=== PATIENT | female | born 1975 | race Two or more races ===

== ENCOUNTER 2021-07-14 20:05 | Emergency (ER) | payer OTHER, SELFPAY ==
--- NOTE | ~2021-07-14 | XR_ITS ---
EXAMINATION: XR chest 2V DATE: 07/14/2021 23:14 INDICATION: Shortness of breath. TECHNIQUE: Frontal and lateral views of the chest were obtained. COMPARISON: Chest 2 views 09/30/2014 FINDINGS: The chest demonstrates clear lungs without pneumonia, pleural effusion, or pneumothorax. Th e heart size is normal. IMPRESSION: 1. No acute cardiopulmonary disease. Reviewed, dictated and finalized at location A.
[2021-07-14 20:39] VITALS: BP 189/94; PULSE 71; RESP 22; TEMP 37.1; O2SAT 100
--- NOTE | 2021-07-14 23:03 | ECG_ITS ---
Measurements Intervals [place] Rate: 56 P: 62 [place]: 131 QRS: 26 QRSD: 83 T: 29 QT: 418 QTc: 405 Interpretive Statements SINUS BRADYCARDIA LEFT ATRIAL ENLARGEMENT [-0.15mV P WAVE IN V1/V2] RSR' IN V1/V2 BORDERLINE ECG NO PREVIOUS ECG AVAILABLE FOR COMPARISON Electronically Signed On 07-15-2021 17:06:49 CDT by Calin Roberts M.D.
[2021-07-14 23:32] VITALS: PULSE 66; RESP 15; O2SAT 99
[2021-07-14 23:33] VITALS: BP 166/117; PULSE 57; RESP 13; O2SAT 100
[2021-07-14 23:46] VITALS: BP 172/105; PULSE 54; RESP 15; O2SAT 100
[2021-07-14 23:47] VITALS: PULSE 58; RESP 21; O2SAT 94
[2021-07-14 23:50] VITALS: BP 192/108; PULSE 64; RESP 15; O2SAT 100
[2021-07-15] VITALS (11 sets, daily range): BP systolic 162–184; BP diastolic 91–109; PULSE 55–77; RESP 14–24; O2SAT 97–100
--- NOTE | 2021-07-15 00:01 | ED.SOB ---
HPI - SOB/Dyspnea General Chief Complaint: Shortness of Breath/Dyspnea Stated Complaint: sob, covid + 07/12/2021 Time Seen by Provider: 07/14/21 23:38 Source: patient Mode of arrival: ambulatory Limitations: no limitations History of Present Illness HPI Narrative: This is a 46 year old female that presents to the ER for shortness of breath today. Reports she was diagnosed with COVID two days ago. Reports cough, congestion and sore throat. She is not vaccinated. Reports mild chest pain. Denies fever or lower extremity edema. Related Data Allergies Allergy/AdvReac Type Severity Reaction Status Date / Time No Known Allergies Allergy Verified 07/14/21 20:39 Review of Systems Review of Systems: CONSTITUTIONAL: Denies fever ENT: Reports congestion. Denies sore throat CARDIOVASCULAR: Reports chest pain RESPIRATORY: Reports cough and dyspnea. All systems reviewed & are unremarkable except as noted in HPI and below PMFSH Past Medical History Medical History (Updated 07/15/21 @ 02:06 by Myrna Mcghee PA-C) No active medical problems Social History Social History (Updated 07/15/21 @ 00:50 by Myrna Mcghee PA-C) Substance use: never Exam Narrative: GENERAL: Well-appearing, well-nourished, and in no acute distress. HEAD: Normocephalic, atraumatic. EYES: EOMI. ENT: Nares clear, no rhinorrhea or epistaxis. Mucous membranes moist. Oropharynx with mild redness, no tonsillar hypertrophy, exudate or other lesions. Bilateral TMs pearly najera non-bulging NECK: Supple. No adenopathy or masses. CHEST: Clear to auscultation. No respiratory distress. No wheezes rales or rhonchi HEART: Regular rate and rhythm. No murmur heard. Normal peripheral pulses. EXTREMITIES: Normal range of motion. No edema. SKIN: Warm, dry, no rash. NEURO: No focal deficits. Alert and oriented x3. PSYCH: Normal mood and affect Course Vital Signs Vital signs: Vital Signs Temperature 98.8 F 07/14/21 20:39 Pulse Rate 71 07/14/21 20:39 Respiratory Rate 22 H 07/14/21 20:39 Blood Pressure 189/94 H 07/14/21 20:39 Pulse Oximetry 100 07/14/21 20:39 Temperature 98.8 F 07/14/21 20:39 Pulse Rate 61 07/15/21 00:45 Respiratory Rate 20 07/15/21 00:45 Blood Pressure 169/91 H 07/15/21 00:31 Pulse Oximetry 100 07/15/21 00:45 MDM - SOB/Dyspnea MDM Narrative Medical decision making narrative: Patient presents to the emergency department for shortness of breath. Recently diagnosed with Covid. Oxygen saturation has remained normal on room air. Lungs are clear on exam. Blood pressure noted to be elevated on arrival. This did downtrend without intervention. Most recent blood pressures 160s/90s. Patient instructed to continue to monitor this at home and follow-up with primary for this. CBC is without leukocytosis. Does show normocytic anemia with hemoglobin of 11.7. Metabolic panel without concerning findings. EKG without acute ST changes. Baseline troponin is negative. D-dimer is not elevated. Chest x-ray without acute cardiopulmonary abnormality. Patient was updated on case findings. She is stable and felt appropriate for further outpatient evaluation. Instructed on continued care of viral infection. She is to follow-up with her primary care doctor. She was given warnings to return to the ER Lab Data Attestation: I reviewed the patient's lab results. Result diagrams: 07/15/21 00:02 07/15/21 00:02 Labs: Lab Results 07/15/21 07/15/21 07/15/21 Range/Units 00:02 00:02 00:02 WBC 6.1 (4.5-10.0) K/mm3 RBC 4.42 (4.2-5.4) M/mm3 Hgb 11.7 L (12.0-15.0) g/dL Hct 37.4 (37.0-47.0) % MCV 84.6 (80-100) fl MCH 26.5 (26-34) pg MCHC 31.3 L (32-36) g/dl RDW 12.3 (11.5-14.5) % Plt Count 366 (150-375) k/mm3 MPV 9.2 (7.4-10.4) fl Immature Gran % (Auto) 0.2 (0-0.5) % Neut % (Auto) 54.4 (45.5-73.1) % Lymph % (Auto) 34.8 (18.3-44.2) % [place] % (A
[2021-07-15 00:10] LABS: Basophils Percent Auto 0.3 % (0.2-1.2); Eosinophils Percent Auto 0.3 % (0-4.4); Hematocrit 37.4 % (37.0-47.0); Hemoglobin 11.7 g/dL (12.0-15.0); Immature Granulocyte Absolute 0.01 K/mm3 (0.00-0.031); Immature Granulocyte Percent A 0.2 % (0-0.5); Lymphocytes Absolute Auto 2.12 K/mm3 (0.9-3.2); Lymphocytes Percent Auto 34.8 % (18.3-44.2); Mean Corpuscular HGB Conc 31.3 g/dl (32-36); Mean Corpuscular Hemoglobin 26.5 pg (26-34); Mean Corpuscular Volume 84.6 fl (80-100); Mean Platelet Volume 9.2 fl (7.4-10.4); Monocytes Absolute Auto 0.6 K/mm3 (0.1-0.6); Neutrophils Absolute Auto 3.3 K/mm3 (1.3-6.7); Neutrophils Percent Auto 54.4 % (45.5-73.1); Platelet Count Result 366 k/mm3 (150-375); Red Blood Count 4.42 M/mm3 (4.2-5.4); Red Cell Distribution Width 12.3 % (11.5-14.5); White Blood Count 6.1 K/mm3 (4.5-10.0)
[2021-07-15 00:23] LABS: INR 0.9; Prothrombin Time 12.2 Seconds (11.1-14.7)
[2021-07-15 00:24] LABS: Partial Thromboplastin Time 26.7 SECONDS (22.3-36.8)
[2021-07-15 00:25] LABS: Alanine Aminotransferase 15 U/L (4-35); Albumin Level 4.4 g/dL (3.5-5.1); Alkaline Phosphatase 52 U/L (38-126); Anion Gap 8 mmol/L (8-16); Aspartate Amino Transferase 27 U/L (14-36); Bilirubin,Total 0.1 mg/dL (0.2-1.3); Blood Urea Nitrogen 21 mg/dL (7-17); Calcium 8.9 mg/dL (8.4-10.2); Carbon Dioxide 27 mmol/L (22-30); Chloride 103 mmol/L (98-107); Estimated CRCL calculation 64 ml/min; Estimated Glomerular Filt Rate 59; Glucose 99 mg/dL (65-110); Lactate Dehydrogenase 322 U/L (313-618); Lipase 180 U/L (23-300); Potassium 3.7 mmol/L (3.4-5.0); Sodium 138 mmol/L (137-145)
[2021-07-15 00:35] LABS: D Dimer < 0.22 ug/mL (<0.48)
[2021-07-15 00:39] LABS: Troponin I < 0.012 ng/mL (0.000-0.034)
[2021-07-15 01:09] LABS: Procalcitonin 0.1 ng/mL
[2021-07-15 01:27] LABS: Ferritin 7.53 ng/mL (6.24-137)
== END 2021-07-15 02:10 | disposition home or self-care (01) ==
PROVIDERS: Physician Assistant; Emergency Provider Emergency Medicine
DX: U07.1 COVID-19 (principal); I10 Essential (primary) hypertension
CPT/HCPCS: 36415; 71046; 80053; 82728; 83615; 83690; 84145; 84484; 85025; 85380; 85610; 85730; 93005; 99284

== ENCOUNTER 2021-11-09 22:37 | Observation (INO) | payer OTHER, SELFPAY ==
[2021-11-09] VITALS (10 sets, daily range): BP systolic 147–162; BP diastolic 84–93; PULSE 62–77; RESP 14–32; TEMP 36.4; O2SAT 98–100
--- NOTE | ~2021-11-09 | NM_ITS ---
EXAMINATION: NM holly stress w perfusion DATE: 11/10/2021 14:21 INDICATION: Chest pain TECHNIQUE: Rest images were obtained following intravenous administration of 7.7 mCi Tc99m tetrofosmi n (Myoview) in supine position. The patient was infused intravenously with Lexiscan (Regadenoson). Th en, 25.7 mCi Tc99m tetrofosmin (Myoview) was administered intravenously, and stress images were obtai nadia in supine position.. Additional post stress images were obtained in the prone position. Data was reconstructed into short axis and horizontal and vertical long axis SPECT images. Gated SPECT images were also obtained. COMPARISON: None. FINDINGS: There is no definite reversible or fixed perfusion abnormality to suggest ischemia or infar ction. There is normal left ventricular chamber size, wall motion and ejection fraction. Left ventr icular ejection fraction measures 60%. IMPRESSION: 1. Normal myocardial perfusion at rest and during stress. 2. Left ventricular ejection fraction measuring 60%. Reviewed, dictated and finalized at location A.
--- NOTE | ~2021-11-09 | US_ITS ---
EXAMINATION: US venous doppler [facility] DATE: 11/10/2021 12:41 INDICATION: Sudden onset shortness of breath TECHNIQUE: Luis scale images without and with compression and Doppler images of the bilateral lower e xtremity veins were obtained. COMPARISON: None FINDINGS: The right common femoral vein, profunda femoral vein, femoral vein, popliteal vein, peroneal trunk, p osterior tibial veins, and greater saphenous vein are patent. The left common femoral vein, profunda femoral vein, femoral vein, popliteal vein, peroneal trunk, po sterior tibial veins, and greater saphenous vein are patent. IMPRESSION: 1. Patent bilateral lower extremity veins. No evidence of deep venous thrombosis. Reviewed, dictated and finalized at location B. IMPRESSION: 1. Patent bilateral lower extremity veins. No evidence of deep venous thrombosi s.
--- NOTE | ~2021-11-09 | XR_ITS ---
EXAMINATION: XR chest 1V portable Exam Date/Time: 11/09/2021 22:55 CDT HISTORY: chest pain Comparison: 07/14/2021. RESULT: Lines, tubes, and devices: None. Lungs and pleura: Clear. Cardiomediastinal silhouette: Stable. Other: No acute osseous or upper abdominal finding. IMPRESSION: No acute cardiopulmonary process. Reviewed, dictated and finalized at location K.
--- NOTE | 2021-11-09 22:49 | ECG_ITS ---
Measurements Intervals [place] Rate: 68 P: 65 [place]: 113 QRS: 17 QRSD: 85 T: 18 QT: 378 QTc: 405 Interpretive Statements SINUS RHYTHM WITH SHORT IA INTERVAL POSSIBLE LEFT ATRIAL ENLARGEMENT BORDERLINE ECG Electronically Signed On 11-10-2021 7:29:08 CDT by Adam Butler D.O.
[2021-11-09 23:23] LABS: Basophils Percent Auto 0.5 % (0.2-1.2); Eosinophils Absolute Auto 0.1 K/mm3 (0-0.3); Hematocrit 34.5 % (37.0-47.0); Hemoglobin 10.3 g/dL (12.0-15.0); Immature Granulocyte Absolute 0.01 K/mm3 (0.00-0.031); Immature Granulocyte Percent A 0.1 % (0-0.5); Lymphocytes Absolute Auto 3.34 K/mm3 (0.9-3.2); Lymphocytes Percent Auto 43.2 % (18.3-44.2); Mean Corpuscular HGB Conc 29.9 g/dl (32-36); Mean Corpuscular Hemoglobin 23.8 pg (26-34); Mean Corpuscular Volume 79.9 fl (80-100); Monocytes Absolute Auto 0.4 K/mm3 (0.1-0.6); Monocytes Percent Auto 5.2 % (2.6-8.5); Neutrophils Absolute Auto 3.9 K/mm3 (1.3-6.7); Platelet Count Result 448 k/mm3 (150-375); Red Blood Count 4.32 M/mm3 (4.2-5.4); Red Cell Distribution Width 14.4 % (11.5-14.5); White Blood Count 7.7 K/mm3 (4.5-10.0)
[2021-11-09 23:33] LABS: INR 1.1; Prothrombin Time 13.4 Seconds (11.1-14.7)
[2021-11-09 23:34] LABS: Partial Thromboplastin Time 26.4 SECONDS (22.3-36.8)
[2021-11-09 23:36] LABS: Alanine Aminotransferase 14 U/L (6-35); Albumin Level 4.2 g/dL (3.5-5.1); Alkaline Phosphatase 43 U/L (38-126); Anion Gap 9 mmol/L (8-16); Aspartate Amino Transferase 24 U/L (14-36); Bilirubin,Total 0.4 mg/dL (0.2-1.3); Blood Urea Nitrogen 25 mg/dL (7-17); Calcium 9.1 mg/dL (8.4-10.2); Carbon Dioxide 28 mmol/L (22-30); Chloride 103 mmol/L (98-107); Estimated Glomerular Filt Rate 59; Glucose 92 mg/dL (65-110); Lipase 153 U/L (23-300); Potassium 3.7 mmol/L (3.4-5.0); Sodium 140 mmol/L (137-145)
[2021-11-09 23:47] LABS: Troponin I < 0.012 ng/mL (0.000-0.034)
[2021-11-09 23:59] LABS: Hypochromasia 1+ (NORMAL); Platelet Estimate Adequate (Adequate)
[2021-11-10] VITALS (18 sets, daily range): BP systolic 121–150; BP diastolic 72–109; PULSE 46–65; RESP 12–26; TEMP 36.3–36.6; O2SAT 91–100; BMI 25.2
--- NOTE | 2021-11-10 | ECHO_ITS ---
Patient Info Name: Bren Mercado Age: 46 years : 1975 Gender: Female Ht: 69 in Wt: 171 lbs BSA: 1.95 m2 HR: 50 bpm BP: 125 / 79 mmHg Heart Rhythm: Sinus Rhythm Technical Quality: Fair Exam Date: 11/10/2021 10:29 AM Exam Location: [facility] Pulmonary Patient Status: Inpatient Admit Date: 11/10/2021 Staff Ordering Physician: Alejandro Lin MD Pipe Joints Supervisor: Reva Higgins RDCS Attending Provider: Deric Lucas MD Referring Physician: Riley ESCOBEDO; Exam Type: CA echo doppler color flow Study Info Indications R07.9 - Chest pain, unspecified Complete two-dimensional, color flow and Doppler transthoracic echocardiogram is performed. Summary 1. Complete two-dimensional, color flow and Doppler transthoracic echocardiogram is performed. 2. Left ventricular chamber dimension is normal. 3. Left ventricular systolic function is normal, estimated at 65-70%. 4. There is mildly increased left ventricular wall thickness. 5. The left ventricular diastolic function is normal. 6. The basal inferior wall is hypokinetic. 7. There is mild tricuspid valve regurgitation. 8. Mild pulmonary hypertension, estimated pulmonary arterial systolic pressure is 35 mmHg. Left Ventricle Left ventricular chamber dimension is normal. Left ventricular systolic function is normal, estimated at 65-70%. There is mildly increased left ventricular wall thickness. The left ventricular diastolic function is normal. The basal inferior wall is hypokinetic. All other jean appear normal. Right Ventricle Right ventricular chamber dimension is normal. Right ventricular systolic function is normal. Left Atria Left atrial chamber dimension is normal. Right Atria Right atrial chamber dimension is normal. Atrial Septum Intact interatrial septum visualized by color flow imaging. Aortic Valve The aortic valve is trileaflet. There is mild aortic valve sclerosis. There is no aortic valve stenosis. There is trace aortic valve regurgitation. Pulmonic Valve The pulmonic valve is normal. There is no pulmonic valve stenosis. There is trace pulmonic regurgitation. Mitral Valve The mitral valve has normal leaflets. There is no mitral valve stenosis. There is trace mitral valve regurgitation. Tricuspid Valve The tricuspid valve leaflets are normal. There is no significant tricuspid valve stenosis. There is mild tricuspid valve regurgitation. Mild pulmonary hypertension, estimated pulmonary arterial systolic pressure is 35 mmHg. Pericardium/Pleural The pericardium appears normal. There is no pericardial effusion. Inferior Vena Cava Dilated inferior vena cava with <50% collapse upon inspiration consistent with elevated right atrial pressure, 15 mmHg. Aorta The aortic root size at the sinus of Valsalva is normal. The prox ascending aorta size is normal. Left Ventricular Outflow Tract Name Value Normal LVOT 2D LVOT Diameter 2.0 cm LVOT Doppler LVOT Peak Gradient 7 mmHg LVOT Mean Gradient 4 mmHg LVOT VTI 28 c
--- NOTE | 2021-11-10 | EST_ITS ---
Patient Info Name: Bren Mercado Age: 46 years : 1975 Gender: Female Ht: 69 in Wt: 171 lbs BSA: 1.95 m2 HR: 45 bpm BP: 116 / 72 mmHg Heart Rhythm: Sinus Rhythm Exam Date: 11/10/2021 1:13 PM Exam Location: [facility], [place] Stress Patient Status: Inpatient Admit Date: 11/10/2021 Staff Ordering Physician: Deric Lucas MD Attending Provider: Deric Lucas MD Exercise Technologist: Jaci Correia CT Nurse: ANA MARIA CRISTOBAL Exam Type: CA stress nick w NM Study Info Indications R07.9 - Chest pain, unspecified A regadenoson stress test was performed. Summary 1. Please correlate with nuclear medicine images, reported separately. 2. No abnormal ST-T wave changes with lexiscan. Protocol: Lexiscan Stress ECG Details Stage: REST Duration (min): 1 min : 0 sec HR (bpm): 46 SBP (mmHg): 116 DBP (mmHg): 72 Stage: REST Duration (min): 5 min : 55 sec HR (bpm): 45 SBP (mmHg): 116 DBP (mmHg): 72 Stage: STAGE 1 Duration (min): 1 min : 0 sec HR (bpm): 87 SBP (mmHg): 129 DBP (mmHg): 79 Stage: RECOVERY Duration (min): 1 min : 0 sec HR (bpm): 90 SBP (mmHg): 129 DBP (mmHg): 79 Stage: RECOVERY Duration (min): 2 min : 0 sec HR (bpm): 70 SBP (mmHg): 129 DBP (mmHg): 79 Stage: RECOVERY Duration (min): 3 min : 0 sec HR (bpm): 61 SBP (mmHg): 117 DBP (mmHg): 76 Stage: RECOVERY Duration (min): 3 min : 1 sec HR (bpm): 61 SBP (mmHg): 117 DBP (mmHg): 76 Rest HR: 45 bpm Peak HR: 100 bpm Rest Sys BP: 116 mmHg Peak Sys BP: 129 mmHg Max Pred HR: 173 bpm % Max Pred HR: 58 % Target HR: 147 bpm Max RPP: 12,900 bpm*mmHg Target HR Summary: Hemodynamic response to exercise was normal BP Response: Normal blood pressure response Termination Reason: Completed protocol Cardiac Symptoms: Chest discomfort, Shortness of breath Total Time: 1 min : 0 sec Rest Cohen BP: 72 mmHg Peak Cohen BP: 79 mmHg Total Dose: 0.4 mg Resting ECG Normal sinus rhythm. Short WI interval, RSR prime. Stress ECG No abnormal ST/T wave changes with exercise. Arrhythmias None. Report Signatures
[2021-11-10] MEDS: KETOROLAC 15 MG/ML VIAL (*BKC) IV PUSH (00:40)
[2021-11-10] MEDS: NITROGLYCERIN SL 0.4 MG TABLET SUBLINGUAL (00:40)
--- NOTE | 2021-11-10 00:45 | PC.NURSE ---
after nitro SL the patient pain and pressure in chest is now a 4
[2021-11-10 00:46] LABS: D Dimer < 0.22 ug/mL (<0.48)
--- NOTE | 2021-11-10 01:38 | ECG_ITS ---
Measurements Intervals [place] Rate: 54 P: 32 [place]: 131 QRS: 25 QRSD: 84 T: 26 QT: 428 QTc: 407 Interpretive Statements SINUS BRADYCARDIA BORDERLINE ECG Electronically Signed On 11-10-2021 7:30:14 CDT by Adam Butler D.O.
[2021-11-10 02:16] LABS: Troponin I < 0.012 ng/mL (0.000-0.034)
--- NOTE | 2021-11-10 02:32 | ED.CHESTPAIN ---
HPI - Chest Pain General Chief Complaint: Chest Pain Stated Complaint: CP AND SOB Time Seen by Provider: 11/09/21 22:49 History of Present Illness HPI narrative: 46yoF p/w R chest pain that seems to radiate down left arm, started after she was doing light cardio; denies any heavy lifting or muscle strain, has never has similar symptoms in past; her father had an [place] in his 40s. She endorses some diaphoresis and MAUREEN. Denies any anxiety or history of it. EMS did give her aspirin and nitroglycerin, states that this did seem to ease the chest pain. Related Data Allergies Allergy/AdvReac Type Severity Reaction Status Date / Time No Known Allergies Allergy Verified 10/03/21 15:03 Review of Systems Review of Systems: CONST: No fever. HEENT: No sore throat C/V: Chest pain RESP: Difficulty breathing GI: Mild nausea : No dysuria. M/S: Left arm pain SKIN: No rash. NEURO: [No headache or focal numbness or weakness] PSYCH: [No depression] [facility] Past Medical History Medical History History of ovarian cyst No active medical problems Family History Family History Other Heart disease Heart valve disorder Social History Social History Smoking status: Never smoker Alcohol intake: never Substance use: never Gender identity (if verbalized by the patient): Female Sexual Orientation (if Verbalized by the Patient): Straight or Heterosexual Exam Narrative: EXAMINATION OF ORGAN SYSTEMS/BODY AREAS: Constitutional: Vital signs per nursing GENERAL: Appears quite uncomfortable in the bed HEAD: Normal with no signs of head trauma. EYES: EOMI, conjunctiva normal ENT: Hearing grossly intact LUNGS: Nonlabored breathing. HEART: [Regular rate and rhythm] ABD: [Soft], [nontender to palpation] EXT: Normal range of motion SKIN: [No rashes or lesions.] NEURO: [Alert and oriented x 3. No gross focal sensory or strength deficits.] PSYCH: Normal affect Course Vital Signs Vital signs: Vital Signs Temperature 97.6 F 11/09/21 22:38 Pulse Rate 77 11/09/21 22:38 Respiratory Rate 18 11/09/21 22:38 Pulse Oximetry 100 11/09/21 22:38 Oxygen Delivery Room Air 11/09/21 22:38 Temperature 97.6 F 11/09/21 22:38 Pulse Rate 62 11/10/21 00:44 Respiratory Rate 18 11/10/21 00:44 Blood Pressure 132/94 H 11/10/21 00:44 Pulse Oximetry 98 11/10/21 00:44 Oxygen Delivery Room Air 11/09/21 22:38 MDM - Chest Pain MDM Narrative Medical decision making narrative: ED COURSE AND MEDICAL DECISION MAKIN-year-old female presenting with chest pain. EKG done in triage shows some possible ST depressions inferior leads without any ST elevations. Cardiac workup is initiated. I am concerned for ACS/KY, also considered PE, less likely dissection without any neurovascular deficits. EKG: Performed in triage and interpreted by me. 2247. normal sinus rhythm. Rate 68. Normal axis. ND normal. QRS duration normal. QTc normal. No pathologic Q waves. Mild ST depressions in inferior leads. No RV strain pattern. Patient started saying that the chest pain had returned, therefore I did repeat an EKG. On the repeat EKG, EKG - 12-Lead: Performed at 0201. Interpreted by me. Sinus rhythm. Rate 54. [Normal] axis. ND-interval [normal]. QRS duration [normal]. QTc [normal]. There are now some biphasic T waves in leads V2 and V3; prior ST depressions in inferior leads are gone. Although her troponin, D-dimer and other labs were within acceptable limits, these EKG changes and her persistent chest pain as well as family history of [place] and story makes me quite concerned, though she has no evidence of STEMI on EKG. I have discussed the case with the hospitalist who was amenable to admission, I will discuss the case with yarrow gatherer on-call. Lab Data Result diagrams: 11/09/21
--- NOTE | 2021-11-10 03:51 | PM.IMHP ---
H&P: HPI History of Present Illness Date/Time: 11/10/21 03:51 Chief Complaint: chest pain Narrative: This is a 46-year-old female with no significant past medical history presents to the emergency room due to retrosternal chest pain some feeling like an elephant sitting on her chest 10/10 in intensity nonradiating, near syncope. patient nurses eyes is regularly and was exercising when this happened pain was relieved with nitroglycerin given on route to the hospital. Patient has been in her usual state of health up until this point denies any nausea, vomiting, cough, sputum production, fevers, chills, rigors, no leg swelling, no orthopnea, no PND. preliminary workup was significant for EKG changes. Review of Systems Review of Systems: RETROSTERNAL CHEST PAIN Constitutional: Constitutional: Denies chills, Denies fever(s), Denies malaise, Denies night sweats, Denies poor appetite and Denies weakness Eyes: Eyes: Denies change in vision ENT: Denies dysphagia, Denies vertigo and Denies odynophagia Cardiovascular: Cardiovascular: Reports chest pain, Denies pedal edema, Denies irregular heart rhythm, Reports lightheadedness, Denies palpitations, Denies dyspnea on exertion and Denies paroxysmal nocturnal dyspnea Respiratory: Respiratory: Denies chest congestion, Denies cough and Denies excessive phlegm production Gastrointestinal: Gastrointestinal: Denies abdominal pain, Denies dyspepsia, Denies heartburn, Denies diarrhea, Denies nausea and Denies vomiting Genitourinary: Genitourinary: Denies dysuria Musculoskeletal: Musculoskeletal: Denies myalgias, Denies joint swelling, Denies limited range of motion, Denies muscle weakness and Denies neck pain Integumentary/Breasts: Skin/Breast: Denies rash Neurologic: Denies vertigo, Denies dizziness, Denies focal weakness and Denies Sensory deficit (Neuro) Psychiatric: Psychiatric: Reports no additional psychiatric complaints and Reports as per HPI Endocrine: Endocrine: Denies cold intolerance, Denies fatigue, Denies flushing, Denies heat intolerance, Denies polyphagia, Denies polydipsia and Denies palpitations Hematologic/Lymphatic: Hematologic/Lymphatic: Reports no additional hematologic/lymphatic complaints and Reports as per HPI Allergic/Immunologic: Allergic/Immunologic: Reports no additional allergic/immunologic complaints and Reports as per HPI [facility] Past Medical History Medical History History of ovarian cyst No active medical problems Family History Family History Other Heart disease Heart valve disorder Social History Social History Smoking status: Never smoker Alcohol intake: never Substance use: never Substance use type: does not use Gender identity (if verbalized by the patient): Female Sexual Orientation (if Verbalized by the Patient): Straight or Heterosexual Spiritual care concerns: No Meds Home Medications and Allergies Home Medications Medication Instructions Recorded Confirmed Type No Home Medications 11/10/21 11/10/21 History Allergies Allergy/AdvReac Type Severity Reaction Status Date / Time No Known Allergies Allergy Verified 10/03/21 15:03 Vital Signs Vital Signs - 24 hr 11/09/21 22:38 11/09/21 22:45 11/09/21 22:48 Temperature 97.6 F Pulse Rate 77 68 Respiratory Rate 18 Blood Pressure 162/89 H Pulse Oximetry 100 Oxygen Delivery Room Air 11/10/21 00:41 11/10/21 00:44 11/09/21 22:49 Temperature Pulse Rate 65 62 62 Respiratory Rate 18 18 18 Blood Pressure 129/93 H 132/94 H Pulse Oximetry 98 98 100 Oxygen Delivery 11/09/21 23:12 11/09/21 23:15 11/09/21 23:22 Temperature Pulse Rate 64 64 Respiratory Rate 32 H 25 H Blood Pressure 147/84 H Pulse Oximetry 100 100 100 Oxygen Delivery 11/09/21 23:37 11/09/21 23:45
--- NOTE | 2021-11-10 04:08 | ADMGEN ---
This patient, Bren Mercado, was admitted to IMU Room 209-01 at 0408. Patient/family oriented to hospital policies and general routines including ID bracelet, bed and alarms, visiting hours, pain management, procedures, bathroom and other care routines, personal items, smoking policy, room service/diet, and visiting hours. Information on how to activate the Rapid Response Team has been discussed. Patient/Family are encouraged to report perceived risks to care and to ask questions if they do not understand what they are told or what they should do.
[2021-11-10] MEDS: ONDANSETRON INJ 4 MG/2 ML VIAL IV PUSH (05:11)
[2021-11-10 05:48] LABS: Troponin I < 0.012 ng/mL (0.000-0.034)
[2021-11-10 08:18] LABS: SARS-CoV-2 RNA PCR Negative
--- NOTE | 2021-11-10 08:51 | PM.CNCAR ---
Assessment and Plan Assessment and plan (1) Chest pain: Code(s): R07.9 - Chest pain, unspecified Status: Acute Assessment and Plan: Somewhat atypical since it has been ongoing for over 10 hours and yet troponins are normal. Concerning in the sense that her symptoms are improved with nitroglycerin but yet given her lack of risk factors as well as history of heartburn and significant social stressors, certainly other possibilities including GI or even anxiety (less likely) should be considered. Ischemic workup is warranted however. Offered stress testing versus cardiac catheterization for definitive coronary anatomy. At this point she wishes to defer catheterization but is agreeable to a stress test. Exercise myocardial perfusion study is ordered. 2D echocardiogram with Doppler will also be ordered and reviewed. Will also give her a GI cocktail now and start her on pantoprazole 40 mg daily. Further workup and recommendations depend on the results of the tests. (2) History of COVID-19: Code(s): Z86.16 - Personal history of COVID-19 Status: Acute (3) Heartburn: Code(s): R12 - Heartburn Status: Acute Assessment and Plan: She does have a history of heartburn for which she has taken Nexium in the past. Nexium has helped the symptoms (4) Anemia: Code(s): D64.9 - Anemia, unspecified Status: Acute Assessment and Plan: This is a chronic issue and not new History of Present Illness History of Present Illness Consult date/time: 11/10/21 08:51 Requesting physician: Kacie Hamilton MD Consult reason: chest pain Reason For Visit: chest pain Narrative: Date of service 11/10/2021 Reason for consultation chest pain Requesting provider Dr. Hamilton History: Patient is a 46-year-old healthy female who presents hospital because of chest pain. She works out routinely and head performed workup thus on her back biceps and some cardio yesterday. She went home and she started developed some chest tightness and heaviness with associated shortness of breath. He did go into her left arm. There is no associated nausea or diaphoresis but she was short of breath. Symptoms were significant and severe and eventually EMS was called. She was given aspirin and nitroglycerin. Symptoms improved a little initially but then worsened. She came to the ER where she was given another round of nitroglycerin which did improve her symptoms but she has had continuous and continued symptoms of chest discomfort overnight. Her chest pain is not ever completely gone away. It is currently at a 3/10. Her troponins are all normal. EKG shows normal sinus rhythm with some nonspecific T-wave abnormalities. She otherwise denies any other cardiac issues or cardiac history. She has no exertional chest pain, shortness breath, syncope, presyncope, paroxysmal nocturnal dyspnea, orthopnea, edema palpitations. Her symptoms are not pleuritic. She does admit to being under more stress recently Review of Systems Review of Systems: All systems reviewed & are unremarkable except as noted in HPI and below Constitutional: Constitutional: Denies body ache(s) Eyes: Eyes: Denies blurry vision ENT: Denies Normal hearing present Cardiovascular: Cardiovascular: Reports chest pain and Denies diaphoresis Respiratory: Respiratory: Denies chest congestion and Reports dyspnea Gastrointestinal: Gastrointestinal: Denies abdominal pain Genitourinary: Genitourinary: Denies hematuria Musculoskeletal: Musculoskeletal: Denies back pain Integumentary/Breasts: Skin/Breast: Denies breast pain Neurologic: Denies Abnormal speech present Psychiatric: Psychiatric: Denies behavioral changes and Denies confusion Endocrine: Endocrine: Denies excessive sweating Hematologic/Lymphatic: Hematologic/Lymphatic: Denies easy bleeding Allergic/Immunologic: Allergic/Immunologic: Denies GI upset with certain foods PMFSH Past Medical His
[2021-11-10] MEDS: PANTOPRAZOLE 40 MG TABLET PO (09:17)
[2021-11-10] MEDS: BELLADONNA ALK/PHENOB ELIX 10 ML, MAG HYDROX/ALUMINUM HYD/SIMETH 30 ML, LIDOCAINE HCL 2... PO (09:19)
--- NOTE | 2021-11-10 16:23 | PM.IMPN ---
Progress Note: A&P Assessment and Plan (1) Chest pain: Code(s): R07.9 - Chest pain, unspecified Status: Acute Assessment and Plan: No elevated troponin and appears fit. She is in the age range where it is possible. No UDS completed in the ed. -Bilateral LE us rule out DVT -Appreciate Cardiology recommendations -Stress test ordered Subjective Date/time seen: 11/10/21 16:23 Patient says her shortness of breath and chest pressure were sudden onset. Patient within the last few weeks restarted control for approximately one week but then discontinued. Denies smoking. Currently denies chest pressure or shortness of breath. Reports having had COVID19 with symptoms of shortness of breath and chest pain but says this is different. Exam Narrative: GENERAL: NAD, cooperative HEENT: Normocephalic, atraumatic, anicteric NECK: Supple CV: Normal S1, S2, RRR, No MRG RESP: CTAB, Normal work of breathing. EXTREMITIES: Warm and well perfused, no clubbing, cyanosis, or edema. SKIN: warm, dry and intact. NEURO: CN 2-12 grossly intact. Objective Data Vital Signs Vital Signs: Vital Signs - 24 hr 11/09/21 22:38 11/09/21 22:45 11/09/21 22:48 Temperature 97.6 F Pulse Rate 77 68 Respiratory Rate 18 Blood Pressure 162/89 H Pulse Oximetry 100 Oxygen Delivery Room Air 11/10/21 00:41 11/10/21 00:44 11/09/21 22:49 Temperature Pulse Rate 65 62 62 Respiratory Rate 18 18 18 Blood Pressure 129/93 H 132/94 H Pulse Oximetry 98 98 100 Oxygen Delivery 11/09/21 23:12 11/09/21 23:15 11/09/21 23:22 Temperature Pulse Rate 64 64 Respiratory Rate 32 H 25 H Blood Pressure 147/84 H Pulse Oximetry 100 100 100 Oxygen Delivery 11/09/21 23:37 11/09/21 23:45 11/09/21 23:47 Temperature Pulse Rate 71 72 64 Respiratory Rate 14 24 H 15 Blood Pressure 155/93 H Pulse Oximetry 100 99 98 Oxygen Delivery 11/10/21 00:01 11/10/21 00:02 11/10/21 00:15 Temperature Pulse Rate 62 65 63 Respiratory Rate 16 26 H 23 H Blood Pressure 121/109 H Pulse Oximetry 91 98 98 Oxygen Delivery 11/10/21 00:16 11/10/21 04:18 11/10/21 04:00 Temperature 97.3 F L Pulse Rate 65 60 55 L Respiratory Rate 24 H 18 14 Blood Pressure 129/93 H 131/72 150/99 H Pulse Oximetry 95 98 100 Oxygen Delivery 11/10/21 04:10 11/10/21 04:10 11/10/21 06:00 Temperature Pulse Rate 48 L 48 L 51 L Respiratory Rate 18 Blood Pressure Pulse Oximetry 98 Oxygen Delivery Room Air 11/10/21 07:46 11/10/21 08:00 11/10/21 08:00 Temperature 98 F Pulse Rate 55 L 49 L Respiratory Rate 12 Blood Pressure 125/79 Pulse Oximetry 97 Oxygen Delivery Room Air 11/10/21 10:00 11/10/21 10:27 11/10/21 12:00 Temperature Pulse Rate 52 L 53 L Respiratory Rate Blood Pressure Pulse Oximetry 98 Oxygen Delivery Room Air 11/10/21 12:00 11/10/21 14:00 Temperature Pulse Rate 53 L Respiratory Rate Blood Pressure Pulse Oximetry Oxygen Delivery Room Air Intake/Output Intake/Output: Intake & Output 11/07/21 11/08/21 11/09/21 11/10/21 23:59 23:59 23:59 23:59 Intake Total 0 Output Total 100 Balance -100 Meds/Results Medications: Active Medications Generic Name Dose Route Start Last Admin Trade Name Freq PRN Reason Stop Dose Admin Enoxaparin Sodium 40 mg 11/10/21 09:00 11/10/21 10:09 Enoxaparin 40 Mg/0.4 Ml Syringe SUB-Q Not Given DAILY NEREIDA Ondansetron HCl 4 mg 11/10/21 04:53 11/10/21 05:11 Ondansetron Inj 4 Mg/2 Ml Vial IV PUSH 4 mg Q6H PRN Administration Nausea And Vomiting Pantoprazole Sodium 40 mg 11/10/21 09:00 11/10/21 09:17 Pantoprazole 40 Mg Tablet PO 40 mg QAM NEREIDA Administration Perflutren Lipid Microsphere 0 ml 11/10/21 09:04 Perflutren Lipid Microspheres 1.5 Ml Vial Diluted To 10 Ml Total Volume IV PUSH ONCE PRN adequate visualization Protocol
[2021-11-10] MEDS: ACETAMINOPHEN 325 MG TABLET 650 MG PO (16:47)
--- NOTE | 2021-11-10 17:46 | PM.DS ---
DS: Admitting Diagnosis Discharge Date 11/10/21 Admitting Diagnosis Chest pressure DS: Discharge Diagnosis Discharge Diagnosis (1) Chest pain: Code(s): R07.9 - Chest pain, unspecified Status: Acute Assessment and Plan: No elevated troponin and appears fit. She is in the age range where it is possible. No UDS completed in the ed. -Bilateral LE us showed no DVT -Stress test showed no ischemia DS: Summary Hospital Course Reason for hospitalization: Chest pressure Hospital Course: 46F with no significant past medical history who presented with chest pressure. Troponin was negative. Patient was given nitroglycerin and had relief. Patient had a stress test that showed no ischemia. Cardiology saw the patient and recommended discharge as the workup was complete and negative. Patient discharged to home. Time Spent with Patient Time attestation: Total time spent providing and/or coordinating discharge services: Exam Narrative: GENERAL: NAD, cooperative HEENT: Normocephalic, atraumatic, anicteric NECK: Supple CV: Normal S1, S2, RRR, No MRG RESP: CTAB, Normal work of breathing. EXTREMITIES: Warm and well perfused, no clubbing, cyanosis, or edema. SKIN: warm, dry and intact. NEURO: CN 2-12 grossly intact. DS: Data Data Completed and Pending Labs on day of discharge: Labs from last 24 hours 11/10/21 11/10/21 11/10/21 04:35 02:54 01:44 WBC RBC Hgb Hct MCV MCH MCHC RDW Plt Count MPV Immature Gran % (Auto) Neut % (Auto) Lymph % (Auto) [place] % (Auto) Eos % (Auto) Baso % (Auto) Lymph # (Auto) [place] # (Auto) Eos # (Auto) Baso # (Auto) Abs Immat Gran (auto) Absolute Neuts (auto) Absolute Nucleated RBC Nucleated RBC % Platelet Estimate Hypochromasia PT INR APTT D-Dimer Sodium Potassium Chloride Carbon Dioxide Anion Gap BUN Creatinine Estim Creat Clear Calc Estimated GFR Glucose Calcium Total Bilirubin AST ALT Alkaline Phosphatase Troponin I < 0.012 < 0.012 Total Protein Albumin Lipase SARS-CoV-2 RNA (RT-PCR) Negative 11/09/21 11/09/21 11/09/21 22:51 22:51 22:51 WBC RBC Hgb Hct MCV MCH MCHC RDW Plt Count MPV Immature Gran % (Auto) Neut % (Auto) Lymph % (Auto) [place] % (Auto) Eos % (Auto) Baso % (Auto) Lymph # (Auto) [place] # (Auto) Eos # (Auto) Baso # (Auto) Abs Immat Gran (auto) Absolute Neuts (auto) Absolute Nucleated RBC Nucleated RBC % Platelet Estimate Hypochromasia PT 13.4 INR 1.1 APTT 26.4 D-Dimer < 0.22 Sodium 140 Potassium 3.7 Chloride 103 Carbon Dioxide 28 Anion Gap 9 BUN 25 H Creatinine 1.00 Estim Creat Clear Calc Not Reportable Estimated GFR 59 Glucose 92 Calcium 9.1 Total Bilirubin 0.4 AST 24 ALT 14 Alkaline Phosphatase 43 Troponin I < 0.012 Total Protein 7.0 Albumin 4.2 Lipase 153 SARS-CoV-2 RNA (RT-PCR) 11/09/21 22:51 WBC 7.7 RBC 4.32 Hgb 10.3 L Hct 34.5 L MCV 79.9 L MCH 23.8 L MCHC 29.9 L RDW 14.4 Plt Count 448 H MPV 10.0 Immature Gran % (Auto) 0.1 Neut % (Auto) 50.0 Lymph % (Auto) 43.2 [place] % (Auto) 5.2 Eos % (Auto) 1.0 Baso % (Auto) 0.5 Lymph # (Auto) 3.34 H [place] # (Auto) 0.4 Eos # (Auto) 0.1 Baso # (Auto) 0.0 Abs Immat Gran (auto) 0.01 Absolute Neuts (auto) 3.9 Absolute Nucleated RBC 0.0 Nucleated RBC % 0.0 Platelet Estimate Adequate Hypochromasia 1+ PT INR APTT D-Dimer Sodium Potassium Chloride Carbon Dioxide Anion Gap BUN Creatinine Estim Creat Clear Calc Estimated GFR Glucose Calcium Total Bilirubin AST ALT Alkaline Phosphatase Troponin I Total Protein Albumin Lipase SARS-CoV-2 RNA (RT-PCR) Procedures/Treatments: Fernando
== END 2021-11-10 18:45 | disposition home or self-care (01) ==
LOC: ANHED 11-10 02:50 → ANHIMU 11-10 04:38
PROVIDERS: Admitting Provider Internal Medicine; Emergency Provider Emergency Medicine; PCP Nurse Practitioner Family; Visit Provider Family Medicine
DX: R07.89 Other chest pain (principal); Z82.49 Family history of ischemic heart disease and other diseases of the circulatory system; Z20.822 Contact with and (suspected) exposure to COVID-19; R12 Heartburn; D64.9 Anemia, unspecified; R00.1 Bradycardia, unspecified; I07.1 Rheumatic tricuspid insufficiency; I27.20 Pulmonary hypertension, unspecified; R94.31 Abnormal electrocardiogram [ECG] [EKG]; Z86.16 Personal history of COVID-19
CPT/HCPCS: 36415; 71045; 78452; 80053; 81025; 83690; 84484; 85025; 85380; 85610; 85730; 93005; 93017; 93306; 93970; 96374; 96375; 99285; A9270; A9502; C9803; G0378; J1885; J2405; J2785; U0003; U0005

== ENCOUNTER 2021-12-04 03:40 | Emergency (ER) | payer OTHER, SELFPAY ==
--- NOTE | ~2021-12-04 | XR_ITS ---
EXAMINATION: XR chest 2V DATE: 12/04/2021 05:21 INDICATION: Chest pain. TECHNIQUE: Frontal and lateral views of the chest were obtained. COMPARISON: Chest single view 11/09/2021, CT abdomen and pelvis 12/04/2021 FINDINGS: The chest demonstrates clear lungs without pneumonia, pleural effusion, or pneumothorax. Th e heart size is normal. IMPRESSION: 1. No acute cardiopulmonary disease. Reviewed, dictated and finalized at location A.
--- NOTE | ~2021-12-04 | CT_ITS ---
EXAMINATION: CT abdomen pelvis w con DATE: 12/04/2021 06:07 INDICATION: Low abdominal pain. Nausea. TECHNIQUE: Computed tomography (CT) of the abdomen and pelvis was performed with 100 mL Omnipaque 350 intravenous contrast. Automated exposure control and iterative reconstruction technique were employe d. The dose-length product was 394.44 mGy-cm. COMPARISON: None. FINDINGS: The visualized portions of the lung bases demonstrate mild atelectasis. No pleural effusion . The heart size is normal. No pericardial effusion. There are bilateral breast implants. There is a 5 mm cyst in the liver. The gallbladder, spleen, pancreas, adrenal glands, and kidneys are normal. Th ere are no dilated loops of bowel. The appendix is normal. There are no pathologically enlarged lymph nodes. There is physiologic fluid in the pelvis. There is mild thoracolumbar spondylosis. IMPRESSION: 1. No etiology for the patient's symptoms. Reviewed, dictated and finalized at location A.
[2021-12-04 03:41] VITALS: BP 143/95; PULSE 73; RESP 22; TEMP 36.1; O2SAT 100
--- NOTE | 2021-12-04 03:54 | ECG_ITS ---
Measurements Intervals [place] Rate: 65 P: 38 ID: 126 QRS: 33 QRSD: 85 T: 48 QT: 389 QTc: 407 Interpretive Statements SINUS RHYTHM NO PREVIOUS ECG AVAILABLE FOR COMPARISON Electronically Signed On 12-04-2021 15:07:18 CDT by Bertha Russell M.D.
--- NOTE | 2021-12-04 04:13 | ED.CHESTPAIN ---
HPI - Chest Pain General Chief Complaint: Chest Pain <Kelly Gil MD - Last Filed: 12/04/21 07:20> Stated Complaint: cp and sob <Kelly Gil MD - Last Filed: 12/04/21 07:20> Time Seen by Provider: 12/04/21 03:43 <Kelly Gil MD - Last Filed: 12/04/21 07:20> Source: patient, EMS and RN notes reviewed <Kelly Gil MD - Last Filed: 12/04/21 07:20> Mode of arrival: EMS <Kelly Gil MD - Last Filed: 12/04/21 07:20> Limitations: no limitations <Kelly Gil MD - Last Filed: 12/04/21 07:20> History of Present Illness HPI narrative: This is a 46 year old female who presents for evaluation right chest pain and lower abdominal pain. Patient states she woke up with sudden onset right chest pain. This pain is describes as sharp and it is worse with inspiration. She also reports she is short of breath with her pain and she also develop lower abdominal pain at the same time. She took aspirin 500 mg. EMS was called and EMS gave her 1 spray nitroglycerin. She denies history oDVT/PE. She does report history of ovarian cyst. She denies recent URI , nausea, vomiting or fever. She is currently on her menstrual cycle now. <Kelly Gil MD - Last Filed: 12/04/21 07:20> Related Data Home Medications: Home Medications Medication Instructions Recorded Confirmed No Home Medications 12/04/21 12/04/21 <Kelly Gil MD - Last Filed: 12/04/21 07:20> Allergies/Adverse Reactions: Allergies Allergy/AdvReac Type Severity Reaction Status Date / Time No Known Allergies Allergy Verified 12/04/21 03:45 <Kelly Gil MD - Last Filed: 12/04/21 07:20> Review of Systems Review of Systems: All systems reviewed & are unremarkable except as noted in HPI and below <Kelly Gil MD - Last Filed: 12/04/21 07:20> Constitutional: Constitutional: Denies chills, Denies fatigue and Denies fever(s) <Kelly Gil MD - Last Filed: 12/04/21 07:20> ENT: Denies nasal congestion <Kelly Gil MD - Last Filed: 12/04/21 07:20> Cardiovascular: Cardiovascular: Reports chest pain, Denies radiating jaw, neck or arm pain and Denies slow heart rate <Kelly Gil MD - Last Filed: 12/04/21 07:20> Respiratory: Respiratory: Denies chest congestion, Denies cough and Reports dyspnea <Kelly Gil MD - Last Filed: 12/04/21 07:20> Gastrointestinal: Gastrointestinal: Reports abdominal pain, Denies nausea and Denies vomiting <Klely Gil MD - Last Filed: 12/04/21 07:20> Genitourinary: Genitourinary: Reports pelvic pain <Kelly Gil MD - Last Filed: 12/04/21 07:20> PMFSH Past Medical History Medical History: Medical History (Updated 12/04/21 @ 07:01 by Kelly Gil MD) Ovarian cyst <Kelly Gil MD - Last Filed: 12/04/21 07:20> Surgical History Surgical History: Surgical History (Updated 12/04/21 @ 04:14 by Kelly iGl MD) History of removal of ovarian cyst <Kelly Gil MD - Last Filed: 12/04/21 07:20> Social History Social History: Social History (Updated 12/04/21 @ 04:14 by Kelly Gil MD) Smoking status: Never smoker <Kelly Gil MD - Last Filed: 12/04/21 07:20> Exam Const: General: alert <Kelly Gil MD - Last Filed: 12/04/21 07:20> Nutritional Appearance: well nourished <Kelly Gil MD - Last Filed: 12/04/21 07:20> Orientation/consciousness: patient oriented x3 <Kelly Gil MD - Last Filed: 12/04/21 07:20> Other: mild distress <Kelly Gil MD - Last Filed: 12/04/21 07:20> HENMT: Head: normal to inspection <Kelly Gil MD - Last Filed: 12/04/21 07:20> Eyes: EOM: EOMs intact bilaterally <Kelly Gil MD - Last Filed: 12/04/21 07:20> Chest: Chest palpation & inspection: tenderness (reproducible right costochondral pain, tenderness) <Kelly Gil MD - Last Filed: 12/04/21 07:20> Resp: Effort &
[2021-12-04 04:24] LABS: Basophils Absolute Auto 0.1 K/mm3 (0.0-0.1); Basophils Percent Auto 0.7 % (0.2-1.2); Eosinophils Absolute Auto 0.1 K/mm3 (0-0.3); Eosinophils Percent Auto 1.4 % (0-4.4); Hematocrit 32.8 % (37.0-47.0); Immature Granulocyte Absolute 0.02 K/mm3 (0.00-0.031); Immature Granulocyte Percent A 0.3 % (0-0.5); Lymphocytes Absolute Auto 2.93 K/mm3 (0.9-3.2); Mean Corpuscular HGB Conc 30.5 g/dl (32-36); Mean Corpuscular Hemoglobin 23.9 pg (26-34); Mean Corpuscular Volume 78.5 fl (80-100); Mean Platelet Volume 9.4 fl (7.4-10.4); Monocytes Absolute Auto 0.4 K/mm3 (0.1-0.6); Monocytes Percent Auto 6.2 % (2.6-8.5); Neutrophils Absolute Auto 3.6 K/mm3 (1.3-6.7); Neutrophils Percent Auto 50.4 % (45.5-73.1); Platelet Count Result 409 k/mm3 (150-375); Red Blood Count 4.18 M/mm3 (4.2-5.4); Red Cell Distribution Width 15.4 % (11.5-14.5); White Blood Count 7.2 K/mm3 (4.5-10.0)
[2021-12-04 04:34] LABS: Prothrombin Time 12.7 Seconds (11.1-14.7)
[2021-12-04 04:35] LABS: Partial Thromboplastin Time 26.5 SECONDS (22.3-36.8)
[2021-12-04] MEDS: MORPHINE SULFATE (*CRX) 4 MG/ML INJ IV PUSH ×2 (04:37→09:03)
[2021-12-04] MEDS: ONDANSETRON INJ 4 MG/2 ML VIAL IV PUSH ×2 (04:37→09:04)
[2021-12-04 04:40] LABS: Alanine Aminotransferase 14 U/L (6-35); Albumin Level 3.8 g/dL (3.5-5.1); Alkaline Phosphatase 59 U/L (38-126); Anion Gap 8 mmol/L (8-16); Aspartate Amino Transferase 25 U/L (14-36); Bilirubin,Total 0.2 mg/dL (0.2-1.3); Blood Urea Nitrogen 24 mg/dL (7-17); Calcium 8.8 mg/dL (8.4-10.2); Carbon Dioxide 26 mmol/L (22-30); Chloride 104 mmol/L (98-107); Estimated CRCL calculation 71 ml/min; Estimated Glomerular Filt Rate > 60; Glucose 109 mg/dL (65-110); Lipase 203 U/L (23-300); Potassium 3.7 mmol/L (3.4-5.0); Sodium 138 mmol/L (137-145)
[2021-12-04 04:48] LABS: Appearance Urine Clear (Clear); Bilirubin Urine Negative (Negative); Blood Urine Trace-lysed (Negative); Color Urine Yellow (Yellow); Glucose Urine UA Negative (Negative); Ketones Urine Negative (Negative); Leukocyte Esterase Ur Trace LEU/UL (Negative); Nitrate Urine Negative (Negative); Protein Urine Trace mg/dL (Negative); Urobilinogen Urine 0.2 mg/dL (<2.0); pH Urine 7.5 (5.0-9.0)
[2021-12-04 04:51] LABS: Troponin I < 0.012 ng/mL (0.000-0.034)
[2021-12-04 04:53] LABS: Amorphous Sediment Urine Few; Bacteria Urine Trace /hpf; Mucus Urine Rare /lpf; Squamous Epithelial Cell Urine Few /hpf (Few)
[2021-12-04] MEDS: SODIUM CHLORIDE 0.9% IV 1,000 ML 999 ML IV CONT (04:54)
[2021-12-04 04:55] LABS: Add Urine Microscopic? YES
[2021-12-04 04:55] LABS: D Dimer < 0.22 ug/mL (<0.48)
[2021-12-04] MEDS: KETOROLAC 30 MG/ML VIAL (*BKC) IV PUSH (05:34)
--- NOTE | 2021-12-04 05:52 | PC.NURSE ---
To CT scan.
--- NOTE | 2021-12-04 07:09 | PC.NURSE ---
Patient states she wants to wait on the morphine, states can I wait on that, I am okay right now. Informed patient that she can refuse the morphine at this time and will relay the information to the oncoming nurse.
--- NOTE | 2021-12-04 07:12 | PC.NURSE ---
Report received from Cat RN and care of pt assumed at this time.
[2021-12-04 07:13] VITALS: BP 156/86; PULSE 70; RESP 16; O2SAT 97
[2021-12-04 07:48] LABS: Troponin I < 0.012 ng/mL (0.000-0.034)
[2021-12-04 09:04] VITALS: BP 150/99; PULSE 72; RESP 15; O2SAT 99
[2021-12-04 10:27] VITALS: BP 154/86; PULSE 55; RESP 12; O2SAT 100
[2021-12-04 12:52] VITALS: BP 147/88; PULSE 69; RESP 14; O2SAT 98
== END 2021-12-04 12:53 | disposition home or self-care (01) ==
PROVIDERS: General Practice; Emergency Provider Emergency Medicine
DX: R07.89 Other chest pain (principal)
CPT/HCPCS: 36415; 71046; 74177; 80053; 81001; 81025; 83690; 84484; 85025; 85380; 85610; 85730; 87086; 87088; 93005; 96361; 96374; 96375; 96376; 99284; J1885; J2270; J2405; J7030; Q9967

== ENCOUNTER 2021-12-05 15:14 | Outpatient (CLI) | payer OTHER, SELFPAY ==
--- NOTE | ~2021-12-05 | MM_ITS ---
EXAMINATION: MM scrn carrie implant BI w volodymyr HISTORY: Screening mammogram TECHNIQUE: Craniocaudal and mediolateral oblique 3-D tomosynthesis images with implant displacement a nd synthetic 2-D images were generated. Craniocaudal and mediolateral oblique views of the breasts wi thout implant displacement were obtained using full field digital mammography. CAD analysis was submi tted and interpreted. COMPARISON: 03/05/2018 BREAST PARENCHYMAL COMPOSITION: The breasts are heterogeneously dense, which may obscure small masses . FINDINGS: There are bilateral subpectoral saline implants. The right breast is stable without evidenc e for malignancy. There is a new focal asymmetry superiorly in the left breast on MLO view. IMPRESSION: 1. New focal left breast asymmetry. 2. Additional mammographic views and possible breast ultrasound are recommended. BI-RADS Category 0: Incomplete: Needs additional imaging evaluation. Reviewed, dictated and finalized at location A. IMPRESSION: 1. New focal left breast asymmetry. 2. Additional mammographic views and possible breast ultrasound are recommended . BI-RADS Category 0: Incomplete: Needs additional imaging evaluation.
== END 2021-12-05 15:15 | disposition home or self-care (01) ==
LOC: ANHIMG 15:15
PROVIDERS: PCP Nurse Practitioner Family; Visit Provider Surgery Plastic and Reconstructive Surgery
DX: Z12.31 Encounter for screening mammogram for malignant neoplasm of breast (principal); R92.8 Other abnormal and inconclusive findings on diagnostic imaging of breast
CPT/HCPCS: 77063; 77067

== ENCOUNTER 2021-12-23 11:47 | Outpatient (CLI) | payer OTHER, SELFPAY ==
--- NOTE | ~2021-12-23 | MMUS_ITS ---
EXAMINATION: MM diag carrie implant LT w volodymyr, US breast LT complete HISTORY: New focal left breast asymmetry reported in superior left breast on screening MLO view of TECHNIQUE: Additional 3-D tomosynthesis images of the left breast were performed and synthetic 2-D im ages were generated. CAD analysis was submitted and interpreted. High resolution complete left breast ultrasound including all 4 quadrants and subareolar area was performed. COMPARISON: 12/06/2019 bilateral implant screening mammogram FINDINGS: MAMMOGRAPHIC FINDINGS: No suspicious mass or architectural distortion is evident. The heterogeneously dense stroma however m ay obscure masses. Ultrasound examination was performed. ULTRASOUND: No suspicious mass or shadowing, cyst or other sylvian sonographic abnormality is noted. Left breast implant. IMPRESSION: 1. No mammographic evidence of malignancy 2. Routine annual mammographic screening is recommended BI-RADS Category 1: Negative Reviewed, dictated and finalized at location A. IMPRESSION: 1. No mammographic evidence of malignancy 2. Routine annual mammographic screening is recommended BI-RADS Category 1: Negative
== END 2021-12-23 11:48 | disposition home or self-care (01) ==
LOC: ANHIMG 11:51
PROVIDERS: PCP Nurse Practitioner Family; Visit Provider Surgery Plastic and Reconstructive Surgery
DX: R92.8 Other abnormal and inconclusive findings on diagnostic imaging of breast (principal)
CPT/HCPCS: 76641; 77061; 77065; G0279

== ENCOUNTER 2022-03-07 01:10 | Day surgery (SDC) | payer OTHER, SELFPAY ==
--- NOTE | 2022-02-28 17:10 | PC.NURSE ---
Report to the Outpatient Waiting Room, entrance under the green pavilion located off [facility], at time 10:00AM on date 03-07-22. Planned Procedure Time: 12:00PM. Time changes happen often and if your time is changed the preop area will call you the afternoon before. - You and your visitor will be asked to self-screen and do not enter if you have any COVID symptoms. - Only one visitor is requested with a max of two and NO children visitors are allowed at this time. - The patient visitor may be requested to leave or wait in car when not with patient due to distancing restrictions. - A mask is optional within the hospital. Patients may have clear liquids (water, carbonated beverages, clear teas, apple juice) until 3 hours prior to surgery (9:00AM) with a maximum of 20 ounces. - No food from midnight until time of surgery Take the following medications with a SIP of water the morning of surgery: N/A Medications to discontinue per physician VITAMINS/SUPPLEMENTS Date to take last dose 03-03-22 Please no make-up, nail khmer, hairspray, perfume, deodorant, or body powder the day of surgery. No jewelry (including any body piercings) or valuables the day of surgery, leave them at home. Please take a shower or bath the night before, or the morning of, surgery with an antibacterial soap. Wear comfortable, loose fitting clothing. - Jewelry must be removed prior to entering the operating room. Rings and piercings that are not removed may be cut off. - The hospital will not accept responsibility for valuables. - Please leave all valuables, including medications, at home the day of surgery. If you are going home after surgery, a licensed guard driver must drive you home. - NO public transportation without another adult if you receive anesthesia. - We recommend that an adult stay with you for 24 hours following discharge. - We also recommend that you do not drive, make important decision, drink alcoholic beverages, or take any drugs that were not prescribed by your health care provider for at least 24 hours after your discharge time. Follow any additional instructions given to you from your surgeon. If you or anyone in your household have experienced Covid symptoms in the past week, please notify your surgeon or the nurse liaison at the phone number below for possible testing. Telephone instructions given to PATIENT and asked if any additional questions and then verbalized understanding. Patient advised to call surgeon office or pre surgery nurse liaison [phone] if any additional questions.
[2022-02-28 17:27] VITALS: BMI 23.4
[2022-03-07] VITALS (10 sets, daily range): BP systolic 122–157; BP diastolic 68–91; PULSE 52–91; RESP 12–16; TEMP 36.2–36.5; O2SAT 98–100
[2022-03-07] MEDS: LACTATED RINGERS 1,000 ML 30 ML IV CONT ×2 (10:37→14:02)
--- NOTE | 2022-03-07 11:48 | P.PNAN_ITS ---
Anes - Initial Pre Proc Eval Procedure: Operation Date: 03/07/22 12:00 Proposed Procedures p Bilateral Breast Implant Exchange - Isaias Chavez MD Date/Time: 03/07/22 11:48 Surgeon: Isaias Chavez MD Pre Op Diagnosis: hx of breast augmentation Patient Data Age: 46 Gender: F Height: 1.75 m Weight: 74.5 kg Last Vital Signs Temp 97.7 F 03/07/22 10:33 Pulse 62 03/07/22 10:33 Resp 14 03/07/22 10:33 BP 122/68 03/07/22 10:33 Pulse Ox 100 03/07/22 10:33 O2 Del Method Room Air 03/07/22 10:33 Allergies Allergy/AdvReac Type Severity Reaction Status Date / Time No Known Allergies Allergy Verified 03/07/22 10:38 Home Medications Medication Instructions Recorded Confirmed Type calcium carb-magnesium oxide-vit 1 tablet PO DAILY 02/28/22 02/28/22 History D3 400 mg-167 mg-133 unit tablet (Calcium Magnesium + D) norethindrone (contraceptive) 0.35 0.35 mg PO DAILY 02/28/22 02/28/22 History mg tablet omega 3,5,6,7,9 combination no.1 1 cap PO DAILY 02/28/22 02/28/22 History 700 mg-salmon oil 1,500 mg capsule (Complete [place]) Patient hx anesthesia problems: other (difficult to awaken) Family hx anesthesia problems: none Results Review: All pre-operative results and documents have been reviewed as part of the pre- operative evaluation. [facility] Past Medical History Medical History (Updated 11/16/21 @ 12:57 by Isaias Chavez MD) History of ovarian cyst No active medical problems Overweight Family History Family History Other Heart disease Heart valve disorder Social History Social History Smoking status: Never smoker Second hand tobacco smoke exposure: Yes (FRIENDS) Alcohol intake: never Substance use: never Substance use type: does not use Living arrangements: with family Gender identity (if verbalized by the patient): Female Sexual Orientation (if Verbalized by the Patient): Straight or Heterosexual Spiritual care concerns: No Anes - Eval Final PreProcedure Day of Procedure 03/07/22 11:48 Patient weight: normal Heart: regular rate and rhythm Lungs: clear to auscultation Airway: Mallampati scale class II Neurological: alert and oriented Last oral intake: >/= 8 hours ASA classification: II Emergent: no Anesthetic plan: proceed Anesthesia type and monitoring: general LMA and standard monitoring Results Review: All pre-operative results and documents have been reviewed as part of the pre- operative evaluation. Informed Consent: The patient's anesthetic plan and its attendant risks and benefits were discussed with the patient/family/POA. Questions were solicited and answers provided to the satisfaction of the patient/family/POA.
--- NOTE | 2022-03-07 12:08 | WPDHPUPDATE1 ---
History and Physical Update Update Date/Time: 03/07/22 12:08 History and Physical has been reviewed, including an updated exam of the patient. There are NO changes in the patient's condition. Risks, benefits, and alternatives have been discussed and questions answered. Patient agrees to proceed with procedure.
--- NOTE | 2022-03-07 12:09 | W.PM.PROC2 ---
Procedure Note - Detailed Date of Procedure 03/07/22 Pre-op Diagnosis hx of breast augmentation Post-op Diagnosis Same Procedure Performed Bilateral breast implant exchange Surgeon Isaias Chavez MD Anesthesia General Findings Bilateral Natrelle Saline Smooth 560cc filled to 590cc Right REF# [id number] SN [id number] Left REF# [id number] SN [id number] Description of Procedure She is here today for bilateral breast implant exchange. Previously and again today the risks, benefits, alternatives were discussed in extensive detail. I wanted her to be very realistic about the risks involved as well as expectations. We discussed aftercare and what to monitor for. Made sure answered all of her questions to her satisfaction today and consent was obtained. Marked in the preoperative holding area with their verification. The patient was taken to the operating room placed supine on the operating table. Anesthesia was provided by anesthesiology. A surgical time-out was taken. We cleansed the skin and 1% lidocaine and 0.25% Marcaine with epinephrine was used anesthetize as a field block. She was prepped and draped in a standard sterile fashion. Tegaderm nipple [place] were placed. A 15 blade used to excise the previous incision. Dissection was continued until the capsule was identified and a significant portion of anterior capsule was removed. Implants were then removed as well. I then copiously irrigated with saline solution on TUR tubing and verified a strict hemostasis. Next the use a triple antibiotic and Betadine containing solution to irrigate the pocket. I washed my gloves with the triple antibiotic and Betadine solution. We washed the implant immediately upon opening it with this solution and only opened it when we needed it. Implant was prepared on the back table to remove all air and placed in the pocket. A fill kit was utilized to fill to the volumes above with saline. Having verified positioning of the implant this was closed using 2-0 Vicryl followed by 3-0 Monocryl in a running subcuticular 4-0 Monocryl followed by tissue glue. Fluffs and surgical bra were placed. Patient was awoke and taken to PACU without difficulty. All instrument sponge counts were correct at the end of the case. Estimated Blood Loss 20 Drains No Packing No Pathology Yes (Bilateral implant capsules) Complications No immediate complications Condition Stable Disposition PACU
[2022-03-07] MEDS: ceFAZolin 2 GM/D5W 50 ML 2 GM/50 ML BAG IVPB (12:39)
[2022-03-07] MEDS: BUPIVACAINE/EPINEPHRINE 0.25% 10 ML VIAL 40 ML INFILTRATE (13:01)
--- NOTE | 2022-03-07 14:07 | SUR.OPER ---
BILATERAL BREAST IMPLANTS [facility] 650 RIGHT AND LEFT RIGHT EXP 2025-04-23 S/N [id number]. LEFT EXP 2025-04-23 S/N [id number].
[2022-03-07] MEDS: fentaNYL CITRATE INJ (*CRX) 100 MCG/2 ML VIAL 25 MCG IV PUSH ×4 (14:22→14:31)
[2022-03-07] MEDS: ONDANSETRON INJ 4 MG/2 ML VIAL IV PUSH (14:53)
[2022-03-07] MEDS: oxyCODONE HCL (*CRX) 5 MG TAB IR PO (15:22)
== END 2022-03-07 16:45 | disposition home or self-care (01) ==
PROVIDERS: PCP Nurse Practitioner Family; Visit Provider Surgery Plastic and Reconstructive Surgery
PROC: (CPT 19342; principal; 2022-03-07 12:00)
DX: Z41.1 Encounter for cosmetic surgery (principal)
CPT/HCPCS: 19371; 19325; 88304; A9270; J0690; J1100; J1170; J1580; J1885; J2250; J2405; J2704; J3010; J7030; J7120

== ENCOUNTER 2023-01-14 01:41 | Emergency (ER) | payer OTHER, SELFPAY ==
--- NOTE | ~2023-01-14 | XR_ITS ---
EXAMINATION: XR chest 2V DATE: 01/14/2023 02:17 INDICATION: Chest pain and cough TECHNIQUE: Frontal and lateral views of the chest are obtained COMPARISON: 12/04/2021 FINDINGS: The lungs are free of acute opacities. No pleural effusion or pneumothorax. The cardiomedia stinal silhouette is normal. There is mild thoracic spondylosis. Bilateral breast implants are noted. IMPRESSION: 1. No acute cardiopulmonary abnormality. Reviewed, dictated and finalized at location F.
--- NOTE | 2023-01-14 01:42 | ECG_ITS ---
Measurements Intervals [place] Rate: 74 P: 61 IL: 124 QRS: 30 QRSD: 83 T: 40 QT: 363 QTc: 404 Interpretive Statements SINUS RHYTHM POSSIBLE RIGHT VENTRICULAR CONDUCTION DELAY [RSR (QR) IN V1/V2] OTHERWISE NORMAL ECG COMPARED TO ECG 11/10/2021 02:02:01 NO CHANGE Electronically Signed On 01-14-2023 9:26:52 CDT by Allen Stockton M.D.
[2023-01-14 01:46] VITALS: BP 177/99; PULSE 93; RESP 18; TEMP 36.4; O2SAT 100
[2023-01-14 02:11] VITALS: O2SAT 100
[2023-01-14] MEDS: ASPIRIN 81 MG CHEWABLE TABLET 324 MG PO (02:19)
[2023-01-14 02:27] VITALS: BP 156/102; PULSE 78; RESP 15; O2SAT 100
--- NOTE | 2023-01-14 02:27 | ED.CHESTPAIN ---
HPI - Chest Pain General Chief Complaint: Chest Pain Stated Complaint: CP, cough Time Seen by Provider: 01/14/23 01:51 History of Present Illness HPI narrative: This is a 47-year-old female, recently treated for pneumonia twice in the past 2 weeks, who presents to the emergency department complaining of cough and left-sided chest tightness. The patient states she has had cough for the past 2 weeks. She was seen by primary care doctor and is now on her second round of amoxicillin. Today her coughing was worse than usual. At approximately 10 PM, she developed left-sided chest tightness that radiated to the left shoulder. This is worse with coughing and associated with lightheadedness. Related Data Home Medications Medication Instructions Recorded Confirmed calcium carb-magnesium oxide-vit 1 tablet PO DAILY 02/28/22 02/28/22 D3 400 mg-167 mg-133 unit tablet (Calcium Magnesium + D) omega 3,5,6,7,9 combination no.1 1 cap PO DAILY 02/28/22 02/28/22 700 mg-salmon oil 1,500 mg capsule (Complete [place]) Allergies Allergy/AdvReac Type Severity Reaction Status Date / Time No Known Allergies Allergy Verified 10/25/22 10:13 Review of Systems Review of Systems: CONSTITUTIONAL: Denies fever, chills, or sweats. EYES: Denies visual changes, redness, or discharge. ENT: Congestion denies rhinorrhea, congestion, sore throat, or otalgia. CARDIOVASCULAR: Chest tightness denies palpitations, or edema. RESPIRATORY: Nonbloody, nonproductive cough and dyspnea GASTROINTESTINAL: Denies abdominal pain, nausea, vomiting, or diarrhea. GENITOURINARY: Denies dysuria or hematuria. SKIN: Denies rash or itching. MUSCULOSKELETAL: Denies back pain, joint pain, or myalgia. NEUROLOGIC: Denies headache, numbness, dizziness, or weakness. PSYCHIATRIC: Denies anxiety or depression. [facility] Past Medical History Medical History (Updated 01/14/23 @ 05:02 by Jay Morrow MD) History of ovarian cyst No active medical problems Ovarian cyst Overweight Surgical History Surgical History (Updated 01/14/23 @ 02:31 by Jay Morrow MD) H/O laparoscopy History of breast augmentation History of removal of ovarian cyst Family History Family History Other Heart disease Heart valve disorder Social History Social History Smoking status: Never smoker Second hand tobacco smoke exposure: Yes (FRIENDS) Alcohol intake: never Substance use: never Substance use type: does not use Lack of Transportation: No Lack of Food: Never True Current Housing: I Have Housing Concerned About Future Housing: No Difficulty Paying Gas/Electric Bills: No Difficulty Paying for Meds: No Currently Unemployed: No Education: Bachelor's Degree Difficulty w/ Childcare or Family Care: No Living arrangements: with family Occupation/Education: occupation Gender identity (if verbalized by the patient): Female Sexual Orientation (if Verbalized by the Patient): Straight or Heterosexual Spiritual care concerns: No Exam Narrative: GENERAL: Well-developed, well-nourished, and in no acute distress. HEAD: Normocephalic, atraumatic. EYES: PERRLA and EOMI. NECK: Supple. No adenopathy or masses. No carotid bruits or JVD CHEST: Clear to auscultation. No respiratory distress. No wheezes rales or rhonchi. Intermittent dry cough HEART: Regular rate and rhythm. No murmur heard. Normal peripheral pulses. ABDOMEN: Soft, nontender, nondistended, normal active bowel sounds. EXTREMITIES: Normal range of motion. No edema. SKIN: Warm, dry, no rash. NEURO: Alert and oriented x3. Moving all 4 limbs purposefully. PSYCH: Normal mood and affect. Course Course Emergency Course: 03:02 - Chest x-ray not concerning for pneumothorax or focal consolidation. EKG not concerning for ischemia. Troponin negative. Heart score
[2023-01-14] MEDS: ALBUTEROL SULFATE NEB 2.5 MG/3 ML INH INHALATION ×2 (02:34→04:10)
[2023-01-14] MEDS: MORPHINE SULFATE (*CRX) 2 MG/ML INJ IV PUSH (02:35)
[2023-01-14 02:37] VITALS: PULSE 79; RESP 22
[2023-01-14 02:45] LABS: Prothrombin Time 13.8 Seconds (11.1-14.7)
[2023-01-14 02:46] LABS: Partial Thromboplastin Time 23.4 SECONDS (22.3-36.8)
[2023-01-14 02:47] LABS: Alanine Aminotransferase 16 U/L (6-35); Albumin Level 3.8 g/dL (3.5-5.1); Alkaline Phosphatase 37 U/L (38-126); Anion Gap 4 mmol/L (8-16); Aspartate Amino Transferase 21 U/L (14-36); Bilirubin,Total 0.4 mg/dL (0.2-1.3); Blood Urea Nitrogen 20 mg/dL (7-17); Calcium 8.6 mg/dL (8.4-10.2); Carbon Dioxide 27 mmol/L (22-30); Chloride 107 mmol/L (98-107); Estimated CRCL calculation 70 ml/min; Estimated Glomerular Filt Rate > 60; Glucose 95 mg/dL (65-110); Lipase 135 U/L (23-300); Potassium 3.2 mmol/L (3.4-5.0); Sodium 138 mmol/L (137-145)
[2023-01-14 02:53] LABS: Basophils Percent Auto 0.2 % (0.2-1.2); Eosinophils Absolute Auto 0.3 K/mm3 (0-0.3); Eosinophils Percent Auto 2.9 % (0-4.4); Hematocrit 28.4 % (37.0-47.0); Hemoglobin 8.3 g/dL (12.0-15.0); Immature Granulocyte Absolute 0.05 K/mm3 (0.00-0.031); Immature Granulocyte Percent A 0.4 % (0-0.5); Lymphocytes Absolute Auto 4.66 K/mm3 (0.9-3.2); Lymphocytes Percent Auto 41.7 % (18.3-44.2); Mean Corpuscular HGB Conc 29.2 g/dl (32-36); Mean Corpuscular Hemoglobin 20.6 pg (26-34); Mean Corpuscular Volume 70.5 fl (80-100); Monocytes Absolute Auto 0.5 K/mm3 (0.1-0.6); Monocytes Percent Auto 4.7 % (2.6-8.5); Neutrophils Absolute Auto 5.6 K/mm3 (1.3-6.7); Neutrophils Percent Auto 50.1 % (45.5-73.1); Platelet Count Result 510 k/mm3 (150-375); Red Blood Count 4.03 M/mm3 (4.2-5.4); Red Cell Distribution Width 18.2 % (11.5-14.5); White Blood Count 11.2 K/mm3 (4.5-10.0)
[2023-01-14 02:58] LABS: Troponin I < 0.012 ng/mL (0.000-0.034)
[2023-01-14 03:27] LABS: Anisocytosis 1+ (NORMAL); Platelet Estimate Increased (Adequate)
[2023-01-14 03:28] LABS: Hypochromasia 1+ (NORMAL); Schistocytes Rare (NORMAL)
[2023-01-14 04:10] VITALS: PULSE 82; RESP 20
[2023-01-14 04:44] LABS: Influenza A QL RT-PCR Negative (Negative); Influenza B QL RT-PCR Negative (Negative); SARS-CoV-2 RNA PCR Negative (Negative)
[2023-01-14] MEDS: KETOROLAC 30 MG/ML VIAL (*BKC) IV PUSH (05:14)
[2023-01-14 05:21] VITALS: BP 142/93; PULSE 83; RESP 20; O2SAT 100
[2023-01-14 05:51] LABS: Troponin I < 0.012 ng/mL (0.000-0.034)
== END 2023-01-14 05:48 | disposition home or self-care (01) ==
PROVIDERS: Emergency Provider Preventive Medicine Aerospace Medicine; PCP Nurse Practitioner Family
DX: R09.1 Pleurisy (principal); R07.89 Other chest pain; Z20.822 Contact with and (suspected) exposure to COVID-19; E66.3 Overweight; Z68.23 Body mass index [BMI] 23.0-23.9, adult; Z77.22 Contact with and (suspected) exposure to environmental tobacco smoke (acute) (chronic); Z87.01 Personal history of pneumonia (recurrent); R94.31 Abnormal electrocardiogram [ECG] [EKG]
CPT/HCPCS: 36415; 71046; 80053; 83690; 84484; 85025; 85610; 85730; 87636; 93005; 94640; 96374; 96375; 99284; A9270; J1885; J2270

== ENCOUNTER 2023-12-01 11:38 | Outpatient (CLI) | payer OTHER, SELFPAY ==
[2023-12-04 05:14] LABS: FSH 22.5 mIU/mL; LH 21.7 mIU/mL; Progesterone 4.1 ng/mL
[2023-12-11 04:06] LABS: Estradiol, Ultrasensitive 49 pg/mL
== END 2023-12-01 11:39 | disposition home or self-care (01) ==
LOC: ANHLAB 11:39
PROVIDERS: PCP Nurse Practitioner Family; Visit Provider Obstetrics & Gynecology
DX: R61 Generalized hyperhidrosis (principal)
CPT/HCPCS: 36415; 82670; 83001; 83002; 84144

== ENCOUNTER 2023-12-18 21:09 | Emergency (ER) | payer OTHER, SELFPAY ==
--- NOTE | ~2023-12-18 | XR_ITS ---
EXAMINATION: XR hand LT min 3V DATE: 12/18/2023 21:24 INDICATION: Left thumb injury. TECHNIQUE: 3 views of left hand were obtained. COMPARISON: None. FINDINGS: Alignment is normal. No fracture. 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 IMPRESSION: 1. No fracture. Reviewed, dictated and finalized at location A. IMPRESSION: 1. No fracture.
[2023-12-18 21:12] VITALS: BP 154/87; PULSE 79; RESP 18; TEMP 36.5; O2SAT 100
--- NOTE | 2023-12-18 22:20 | ED.UPPEXIN ---
HPI - Extremity Injury (Upper) General Chief Complaint: Extremity Injury, Upper Stated Complaint: hand injury from fall Time Seen by Provider: 12/18/23 21:27 Source: patient Mode of arrival: ambulatory Limitations: no limitations History of Present Illness HPI narrative: This is a 48-year-old female that presents to the emergency department after a left thumb injury sustained just prior to arrival. Reports she tripped and fell. Reports pain and swelling at the left thumb. Denies decreased range of motion or numbness Related Data Home Medications Medication Instructions Recorded Confirmed No Home Medications 12/18/23 Allergies Allergy/AdvReac Type Severity Reaction Status Date / Time No Known Allergies Allergy Verified 12/18/23 21:14 Review of Systems Review of Systems: CONSTITUTIONAL: Denies fever MUSCULOSKELETAL: Reports joint pain, and myalgia. NEUROLOGIC: Denies numbness, or weakness. All systems reviewed & are unremarkable except as noted in HPI and below PMFSH Past Medical History Medical History (Updated 12/18/23 @ 22:21 by Myrna Mcghee PA-C) History of ovarian cyst No active medical problems Ovarian cyst Overweight Screening mammogram for breast cancer Surgical History Surgical History H/O laparoscopy History of breast augmentation History of removal of ovarian cyst Family History Family History Other Heart disease Heart valve disorder Social History Social History Smoking status: Never smoker Second hand tobacco smoke exposure: Yes (FRIENDS) Alcohol intake: never Substance use: never Substance use type: does not use Lack of Transportation: No Lack of Food: Never True Current Housing: I Have Housing Concerned About Future Housing: No Difficulty Paying Gas/Electric Bills: No Difficulty Paying for Meds: No Currently Unemployed: No Education: Bachelor's Degree Difficulty w/ Childcare or Family Care: No Living arrangements: with family Occupation/Education: occupation Gender identity (if verbalized by the patient): Female Sexual Orientation (if Verbalized by the Patient): Straight or Heterosexual Spiritual care concerns: No Exam Narrative: GENERAL: Well-appearing, well-nourished, and in no acute distress. HEAD: Normocephalic, atraumatic. EYES: EOMI. EXTREMITIES: Normal range of motion. Mild edema about the left thumb interphalangeal joint. No obvious deformity. Normal sensation. Normal capillary refill SKIN: Warm, dry, no rash. NEURO: No focal deficits. Alert and oriented x3. PSYCH: Normal mood and affect Course Course Emergency Course: Patient updated on workup and agrees with plan of care Vital Signs Vital signs: Vital Signs Temperature 97.7 F 12/18/23 21:12 Pulse Rate 79 12/18/23 21:12 Respiratory Rate 18 12/18/23 21:12 Blood Pressure 154/87 H 12/18/23 21:12 Pulse Oximetry 100 12/18/23 21:12 Oxygen Delivery Room Air 12/18/23 21:12 Temperature 97.7 F 12/18/23 21:12 Pulse Rate 79 12/18/23 21:12 Respiratory Rate 18 12/18/23 21:12 Blood Pressure 154/87 H 12/18/23 21:12 Pulse Oximetry 100 12/18/23 21:12 Oxygen Delivery Room Air 12/18/23 21:12 Procedures Orthopedic Splinting/Casting Injury #1: Splinting/Casting Date: 12/18/23 Splinting/Casting Time: 22:26 Side: left Upper Extremity Injury Location: finger Upper Extremity Immobilizer: finger (other) Splint: prefabricated Pre-Formed: metal foam finger splint Pre-Procedure Neuro Vascular Exam: normal Post-Procedure Neuro Vascular Exam: normal MDM - Extremity Injury (Upper) MDM Narrative Medical decision making narrative: Patient presents to the ER for left first finger pain. Reports she tripped and fe
[2023-12-18 22:29] VITALS: PULSE 75; RESP 15; O2SAT 100
== END 2023-12-18 22:32 | disposition home or self-care (01) ==
PROVIDERS: Emergency Provider Physician Assistant; PCP Nurse Practitioner Family
DX: S63.602A Unspecified sprain of left thumb, initial encounter (principal); E66.3 Overweight; Z68.24 Body mass index [BMI] 24.0-24.9, adult; Z77.22 Contact with and (suspected) exposure to environmental tobacco smoke (acute) (chronic); W01.0XXA Fall on same level from slipping, tripping and stumbling without subsequent striking against object, initial encounter
CPT/HCPCS: 73130; 99283

== ENCOUNTER 2024-02-05 13:23 | Outpatient (CLI) | payer OTHER, SELFPAY ==
[2024-02-05 13:52] LABS: Add Urine Microscopic? YES; Appearance Urine Cloudy (Clear); Bacteria Urine None Seen /hpf; Bilirubin Urine Negative (Negative); Blood Urine Negative (Negative); Color Urine Yellow (Yellow); Glucose Urine UA Negative (Negative); Ketones Urine Negative (Negative); Leukocyte Esterase Ur 1+ LEU/UL (Negative); Nitrate Urine Negative (Negative); Non Pathogenic Casts 0-2; Protein Urine Negative (Negative); RBC Urine 0-2 /hpf (0-2); Specific Grav Ur 1.025 (1.001-1.035); Squamous Epithelial Cell Urine Occasional /hpf (Few); Urobilinogen Urine 0.2 mg/dL (<2.0)
[2024-02-09 19:09] LABS: Testosterone Total 22 ng/dL (2-45)
[2024-02-09 22:03] LABS: Testosterone Free 1.4 pg/mL (0.2-5.0)
== END 2024-02-05 13:24 | disposition home or self-care (01) ==
LOC: ANHLAB 13:25
PROVIDERS: PCP Nurse Practitioner Family; Visit Provider Obstetrics & Gynecology
DX: N95.1 Menopausal and female climacteric states (principal); R39.15 Urgency of urination
CPT/HCPCS: 36415; 81001; 84402; 84403; 87086

== ENCOUNTER 2024-08-24 03:17 | Emergency (ER) | payer OTHER, SELFPAY ==
[2024-08-24] VITALS (25 sets, daily range): BP systolic 134–149; BP diastolic 74–89; PULSE 54–75; RESP 13–25; TEMP 36.4; O2SAT 99–100
--- NOTE | ~2024-08-24 | XR_ITS ---
EXAMINATION: XR chest 2V 08/24/2024 04:05 INDICATION: Chest pain and shortness of breath PROCEDURE: 2 view chest COMPARISON: Comparison to multiple prior studies sequentially, with oldest reviewed study dated 07/14. FINDINGS: The lungs are clear. The cardiomediastinal silhouette is within normal limits. There are no pleural effusions. There is no pneumothorax suspected. IMPRESSION: 1: NO ACUTE CARDIOPULMONARY DISEASE. Reviewed, dictated and finalized at location A.
--- OUTSIDE RECORDS SUMMARY | 2024-08-24 03:19 | XMS_ITS | Clinical Summary ---
Author Organization [facility] Address [address] [place] [address] Care Team Providers Care Calculating Machine Operator Name Role Phone Maribell Reina Gerson DESAI-MEDICAL CODING TECHNICIAN Primary Care Provider Source Comments [facility],non-owned Affiliates and Associated Physician Practices is amultiple site organization consisting of ambulatory clinics and hospital sitesin [place], [place], [place] and [place]. This disclosure is being madepursuant to the Care Everywhere program and may not contain all information available regarding this patient. Last updated 18.[facility] Allergies No known active allergies Medications * Be aware that medications may not be up to date on this document. Alwaysverify current medications with the patient. PARAGARD INTRAUTERINE COPPER IU by Intrauterine route. Active drospirenone-eth yinyl estradiol (IZZY) 3-0.02 MG tablet Take 1 Tab by mouth daily. 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 Gender Identity Not on file Sexual Orientation Not on file Last Filed Vital Signs Vital Sign Reading Time Taken Comments Blood Pressure 119/52 10/12/2008 2:35 PM CDT Pulse 56 10/12/2008 2:35 PM CDT Temperature - - Respiratory Rate - - Oxygen Saturation - - Inhaled Oxygen Concentration - - Weight 77.1 kg (170 lb) 10/12/2008 2:35 PM CDT Height - - Body Mass Index - - Plan of Treatment Health Maintenance Due Date Last Done Comments COLOGUARD (AGES 45-75) - COL ON CA SCREENING 1974 COLON MONITORING 1974 COLONOSCOPY - COLON CA SCREENING 1974 CT COLONOGRAPHY - COLON CA SCREENING 1974 Colorectal Cancer Screening 1974 FIT - COLON CA SCREENING 1974 FLEX SIG - COLON CA SCREENING 1974 LIPID TESTING 1974 MAMMOGRAM 1974 HIV SCREENING 1989 HEPATITIS C SCREENING 03/09/1992 DTAP/TDAP/TD VACCINES (1 - Tdap) 1993 HEPATITIS B VACCINE (1 of 3 - 19+ 3-dose series) 1993 COVID-19 VACCINE (1 - 2023-2 5 season) 2023 PNEUMOCOCCAL VACCINE 50+ (1 of 1 - PCV) 2024 ZOSTER VACCINE (1 of 2) 2024 DEPRESSION SCREENING 04/16/2024 INFLUENZA VACCINE (Season Ended) 2024 HIB VACCINE Aged Out No longer eligi ble based on patient's age to complete this topic HPV VACCINE Aged Out No longer eligi ble based on patient's age to complete this topic MENINGOCOCCAL (Group B) VACC INE SHARED DECISION-MAKING Aged Out No longer eligibl e based on patient's age to complete this topic MENINGOCOCCAL GROUPS A/C/Y/W VACCINE Aged Out No longer eligible b ased on patient's age to complete this topic Insurance [facility] Care Teams Calculating Machine Operator Relationship Specialty Start Date End Date Reina Reyna APRN-MEDICAL CODING TECHNICIAN [address] [place] [address] [phone] PCP - General 03/21/22
--- OUTSIDE RECORDS SUMMARY | 2024-08-24 03:19 | XMS_ITS | Data Portability ---
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 Start Atrovent nasal spray 0.06% 1 spray to each nostril up to 4 times a day for postnasal drip. Cough/Dyspnea workup will be done as follows: Respiratory allergen panel for [facility] Serum IgE Serum total IgG, IgG1, IgG2, IgG3, IgG4 [id number] n phenotype and level TB stimulated gamma interferon B-type natriuretic peptide (BNP) Eosinophil count Complete pulmonary function testing (PFT) There are five different groups of pulmonary hypertension (PH) based on different causes. These groups are defined by the World Health Organization (WHO) and are referred to as PH WHO Groups. Group 1: Pulmonary Arterial Hypertension (PAH) Group 2: Pulmonary Hypertension Due to Left Heart Disease Group 3: Pulmonary Hypertension Due to Lung Disease Group 4: Pulmonary Hypertension Due to Chronic Blood Clots in the Lungs Group 5: Pulmonary Hypertension Due to Unknown Causes Pulmonary hypertension (PH) workup will be done as follows: Chest CT with high resolution cuts to evaluate for ILD, mediastinal adenopathy, pleural-based disease. Check Scl-70, SB, ANCA, rheumatoid factor, HIV serologies. Advised to continue not to smoke. Adherence to therapy is advocated. Nonadherence may lead to treatment failure, further progression of the condition, and other complications. Hospitals admissions are often the result of individuals not taking prescription medications accurately. Alternatively, greater adherence to medication regimens have shown to lower rates of hospitalization and decrease total medical costs in patients with chronic medical conditions. Advocated influenza vaccination annually and pneumonia vaccination in 2038. Advocated weight loss through diet and exercise. Patient's ideal body weight according to height and gender is up to 155 lbs. Encouraged patient to adjust caloric intake to maintain/achieve ideal body weight, emphasizing on fruits, vegetables, whole grains, and fat-free or low-fat products. These include lean meats, poultry, fish, beans, eggs, and nuts and foods that are low in saturated fats, trans-fats, cholesterol, salt (sodium), and glycemic index. Stressed the importance of regular exercise up to the patient's capacity limits. In this case, we recommend 20 min daily walking, 2 days a week of resistance training. Patient to monitor BP daily and bring records to PCP for further management. Follow-up: 1 week after PFT and chest CT [email or web address] Not available 01/16/2023 12:51:59 03/29/2023 03/29/2023 Assessment: Postnasal drip Pulmonary hypertension (DLCO/VA 75%) Iron deficiency anemia Plan: The following were reviewed and explained to the patient: Chest 2 views 12/25/22 wnl Chest 2 views 01/14/23 wnl 2-D echocardiogram 11/10/21 mild TR, PASP 35 mmHg, EF 65% Lab data 01/16/[address] 02/05/23 no acute findings PFT 02/06/23 nl FEV1/FVC, FEV1 3.01 L (103%), TLC 5.44 L (97%), DLCO 55%, DLCO/VA 75% I spoke with PCP Reina Reyna regarding her probable iron deficiency anemia. Continue Atrovent nasal spray 0.06% 1 spray to each nostril up to 4 times a day for postnasal drip. There are five different groups of pulmonary hypertension (PH) based on different causes. These groups are defined by the World Health Organization (WHO) and are referred to as PH WHO Groups. Group 1: Pulmonary Arterial Hypertension (PAH) Group 2: Pulmonary Hypertension Due to Left Heart Disease Group 3: Pulmonary Hypertension Due to Lung Disease Group 4: Pulmonary Hypertension Due to Chronic Blood Clots in the Lungs Group 5: Pulmonary Hypertension Due to Unknown Causes Workup for secondary causes of pulmonary hypertension is negative. Methacholine challenge testing and repeat 2-D echocardigoram will be considered in the future if cough or chest pain recurs. Advised to continue not to smoke. Adherence to therapy is advocated. Nonadherence may lead to treatment failure, further progression of the condition, and other complications. Hospitals admissions are often the result of individuals not taking prescription medications accurately. Alternatively, greater adherence to medication regimens have shown to lower rates of hospitalization and decrease total medical costs in patients with chronic medical conditions. Advocated influenza vaccination annually and pneumonia vaccination in 2038. Advocated weight loss through diet and exercise. Patient's ideal body weight according to height and gender is up to 155 lbs. Encouraged patient to adjust caloric intake to maintain/achieve ideal body weight, emphasizing on fruits, vegetables, whole grains, and fat-free or low-fat products. These include lean meats, poultry, fish, beans, eggs, and nuts and foods that are low in saturated fats, trans-fats, cholesterol, salt (sodium), and glycemic index. Stressed the importance of regular exercise up to the patient's capacity limits. In this case, we recommend 20 min daily walking, 2 days a week of resistance training. Patient to monitor BP daily and bring records to PCP for further management. Follow-up: as needed [email or web address] Not available 03/29/2023 16:06:39 05/23/2023 05/23/2023 Explained about different options for her. Will send urine for C&S. Meds as directed. Educated pt about alarming symptoms to monitor at home. F/u in few weeks for Annual exam. Not available 05/23/2023 16:09:00 06/18/2023 06/18/2023 48 yo F with - WELL ADULT VISIT - URINARY URGENCY, chronic - CHRONIC COUGH, resolved D/w pt about her findings, recent labs & imagines and further plan of care. Will do routine labs. Meds as directed. Diet and exercise explained in detail. F/u with Uro as per schedule. Cont f/u with Pulmo as per schedule. HM: WWE - Pt will be seeing her Gyne in few weeks. Mammo - Ordered. Colonoscopy - Never. Pt declined. Cologuard ordered. Flu - Pt declined. Tdap - On next visit. F/u in 2-3 weeks. Annual labs in 07/08. [email or web address] Not available 06/18/2023 10:51:35 Plan of Treatment Reminders Order Date Submit Date Provider Last Modified By Organization Details Last Modified Time Details Appointments None recorded. Lab rapid strep group A, throat 2023 024 RAMON [facility], [address] [place] [address], [place], [address], 4 14:35:12 vitamin D, 25-hydroxy, total, serum [address] (Lab), [address] [place], [address], 4 08:18:08 noninvasive colorectal cancer DNA + occult blood screening, QL, stool 2023 024 [email or web address] [address] [facility] (Cologuard Orders Only), [address], [address], [place], [address], 4 07:55:43 HbA1c (hemoglobin A1c), blood [address] (Lab), [address] [place], [address], 4 08:18:08 CBC w/ auto diff [address] (Lab), [address] [place], [address], 4 08:18:07 CMP, serum or plasma [address] (Lab), [address] [place], [address], 4 08:18:08 lipid panel, serum [address] (Lab), [address] [place], [address], 4 08:18:08 TSH, serum, reflex free T4 [address] (Lab), [address] [place], [address], 4 08:18:08 urinalysis complete, reflex culture [address] (Lab), [address] [place], [address], 4 08:18:08 culture, urine 2023 024 [facility] (Lab), [address] [place], [address], 4 09:53:36 alpha-1-ant itrypsin (aat) phenotype, serum [email or web address] [facility] - Outpatient Lab, [address] [place], [address], 3 14:54:49 BNP (B-type natriuretic peptide), serum or plasma 2022 023 [email or web address] 25 [facility], [address] [place], [address], 3 14:54:49 ige, total, serum [email or web address] [facility], [address] [place], [address], 3 14:54:49 tb (M tuberculosi s), ifn-gamma frank, blood 2022 023 [email or web address] 25 [facility], [address] [place], [address], 3 14:54:49 eosinophil count, manual, blood (OBS) [email or web address] [facility], [address] [place], [address], 3 14:54:49 igg subclasses 1+2+3+4, serum [email or web address] [place] [address] - Outpatient Lab, [address] [place], [address], 3 14:54:49 respiratory allergen panel - [facility] a 2022 [email or web address] [place] [address] Outpatient Lab, [address] [place] [address], [address], 3 14:54:50 respiratory allergen panel - [facility] b 2022 [email or web address] [place] [address] - Outpatient Lab, [address] [place], [address], 3 14:54:50 scleroderma (SCL-70) autoantibod ies, serum 2022 023 [email or web address] [facility] Out[facility] Lab, [address] [place] [address], [address], 3 14:54:50 SB (antinuclea r antibodies) screen, serum [email or web address] [place] [address] - Outpatient Lab, [address] [place], [address], 3 14:54:50 anca panel, serum [address] [facility] Outpatient Lab, [address] [place], [address], 3 20:44:25 rf (rheumatoid factor), serum [email or web address] [place] [address] - Outpatient Lab, [address] [place], [address], 3 14:54:50 HIV (1+2) Ab screen, serum 2022 023 [facility] - Outpatient Lab, [address] [place], [address], 3 20:44:25 Referral None recorded. Procedures None recorded. Surgeries None recorded. Imaging MAMMO, screening, bilateral 2023 024 [email or web address] Not available 4 09:21:23 CT, chest, w/o contrast - HIGH RESOLUTION approved [id number] 01/18/23-2022 023 [facility] (One Call Scheduling), [address] [place], [address], 3 18:10:28 Medication Orders ibuprofen 600 mg tablet 2023 024 [id number], [address] [place], [place], [id number], 4 14:31:17 fluconazole 150 mg tablet 2023 024 [email or web address] [facility], [address] [place], [place], [id number], 4 10:43:59 ipratropium bromide 42 mcg (0.06 %) nasal spray 2022 023 [id number], [address] [place], [place], [id number], 4 14:05:00 Patient TargetsNo targets recorded. Patient Instructions Encounter Date Encounter Id Patient Instructions Last Modified By Organization Details Last Modified Time 01/16/2023 [id number] complete PFT w/ post bronchodilator spirometry* [place] Not available 02/25/2023 14:11:50 Reason for Referral None Reported. Results Created Date Observation Date Name Description Value Unit Range Abnormal Flag Note LastModifiedBy Organization Detail LastModifiedTime 06/18/1906/17/2024 COLOG UARD cologuard result Cancel led - Order d not applic able Not Available [facility] (Cologuard Orders Only) [address], [place], [address], 06/17/2024 11:57:25 12/22/1912/21/2022 rapid strep group A, throa t STREP A negati ve Not Available [address], [address], 12/21/2022 16:24:25 12/22/19 23 12/21/2022 rapid flu (A+B) Flu A negati ve Not Available [address], [address], 12/21/2022 16:24:07 12/22/19 23 12/21/2022 rapid flu (A+B) Flu B negati ve Not Available [address], [address], 12/21/2022 16:24:07 01/12/20 23 01/11/2023 rapid strep group A, throa t STREP A negati ve Not Available [address], [address], 01/09/2023 10:14:42 08/30/19 24 08/30/2023 rapid strep group A, throa t STREP A negati ve Not Available [address], [address], 08/30/2023 14:23:12 12/26/19 23 XR, chest , 2 view [facility] [address] [place] [address] [phone] Patien t Name: BREN MERCADO Access ion #: [id number] Sex: F : 1974 4 Dictat ed By: Bebo Bull Attend ing Physic nora: KEANU STEPHEN Orderbeatriz welch Physic nora: KEANU STEPHEN Exam Date: 2022 11:47 AM Exam Name: XR CHEST 2V Admitt ing Diagno sis(es ): EXAM: XR CHEST 2V DATE OF SERVIC E: 2022 11:53 AM Orderi yuri Physic nora: KEANU STEPHEN REASON FOR EXAM: 47 years old, Female ; pain TECHNI QUE: Fronta l and latera l view of the chest was obtain ed COMPAR ISABEL: None FINDIN GS: Lines and Tubes: None Lungs: No focal consol idatio n. Pleura : No effusi on. No pneumo thorax . Cardio medias tinal contou rs: Unrema rkable Bones: No acute osseou s abnorm ality. IMPRES MARIE: No acute cardio pulmon latasha diseas e. Electr onical ly Signed by: Bebo Bull at 2022 10:23: 43 AM Page 1 [email or web address] [facility] (Imaging) [address] [place], [address], 01/09/2023 10:03:27 01/15/2001/14/2023 XR, chest , 2 view No observ ation record ed. [email or web address] [facility] [address], [place], [address], 01/17/2023 07:36:56 02/06/2002/05/2023 CT, chest , w/o contr ast No observ ation record ed. [email or web address] [facility] [address] [place], [address], 02/23/2023 14:01:34 02/06/2002/05/2023 CT, angio gram, chest , w/o contr ast No observ ation record ed. [email or web address] [facility] [address] [place], [address], 02/06/2023 07:58:44 02/26/20 23 02/06/2023 compl ete PFT w/ post bron hodil ator elo metry * No observ ation record ed. BARCODE [facility] (One Call Scheduling) [address] [place], [address], 02/25/2023 14:11:50 Result Notes None recorded. Problems Name Problem SNOMED Code Status Onset Date Resolution Date Notes Provider Name and Address Organization Details Recorded Time Acute sinusiti s 25383281 Completed Not Available [facility] 3 08:09:33 Pain in throat 487583582 Completed Not Available [facility] 3 08:09:33 Abdomina l pain 87811507 Completed Not Available [facility] 3 08:09:33 Pleuriti c pain 5599865 Completed Not Available [facility] 3 08:09:33 Herpesvi eula infectio n 94008715 Active Not Available [facility] 3 08:09:33 Fluid level behind tympanic membrane Completed Not Available [facility] 3 08:09:34 Eruption 099830178 Completed Not Available [facility] 3 08:09:34 Otitis externa 2379950 Completed Not Available [facility] 3 08:09:34 Bronchit is 78304271 Completed Zen Earl MD [address] [facility], [address], [address] , [place] [facility] [employer] [facility] 3 20:03:21 Missed period 79135065 Completed Not Available [facility] 3 08:09:34 Fever 895317297 Completed Not Available [facility] 3 08:09:34 Acute urinary tract infectio n 458298675 Completed Not Available [facility] 3 08:09:35 Dysuria 77371348 Completed Ethan Stephen MD [address], [address], [place], [address] , [place] [facility] 4 15:55:29 Hyperlip idemia 01714688 Active 2018 employer labs. Not Available [facility] 3 08:09:35 Urinary tract infectio us disease 04123208 Completed Ethan Stephen MD [address], [address], [place], [address] , [place] [facility] 4 09:25:13 Rhinitis 36410289 Completed Not Available [facility] 3 08:09:36 Posterio r rhinorrh ea 86904622 Completed Zen Earl MD [address], [address], [place], [address] , [facility] 3 12:40:20 Fatigue 73734580 Completed Zen Earl MD [address], [address], [place], [address] , [facility] 3 20:03:42 Iron deficien cy anemia 07800188 Active 2022 Reina Reyna NP [address], [address], [place], [address] , [facility] 3 09:42:59 Microcyt ic anemia 699613130 Active 2022 Reina Reyna NP [address], [address], [place], [address] , [facility] 3 09:44:54 Hypokale sanchez 59595544 Active 2022 Reina Reyna NP [address], [address], [place], [address] , [facility] 3 09:45:24 Pulmonar y hyperten marie 86489650 Active 2022 Zen Earl MD [address], [address], [place], [address] , [facility] 3 12:31:17 Posterio r rhinorrh ea 93221346 Active 2022 Zen Earl MD [address], [address], [place], [address] , [facility] - [facility] [employer] [facility] 3 12:40:20 Urinary tract infectio us disease 15879312 Active 2023 Ethan Stephen MD [address], [address], [place], [address] , [employer] [facility] [place] [employer] [facility] 4 09:25:13 Dysuria 78243644 Active 2023 Ethan Stephen MD [address], [address], [place], [address] , [employer] - [facility] [employer] [facility] 4 15:55:29 Candidal vulvovag initis 40956926 Active 2023 Ethan Stephen MD [address], [address], [place], [address] , [employer] [facility] [employer] [facility] 4 15:59:46 Urinary symptoms 456465358 Active 2023 Ethan Stephen MD [address], [address], [place], [address] , [employer] [facility] [employer] [facility] 4 16:07:45 Recurren t urinary tract infectio n 818308730 Active 2023 Ethan Stephen MD [address], [address], [place], [address] , [employer] [facility] [employer] [facility] 4 09:54:23 Headache 13433281 Active 2023 JEREMIAH Sotomayor [address], [address], [place], [address] , [employer] - [facility] 4 14:18:59 Sore throat 555789412 Active 2023 JEREMIAH Sotomayor [address], [place], [address] , [facility] - [facility] [employer] 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 Procedures Surgical History Date Name Laterality Status Provider Name and Address Organization Details Recorded Time insertion of bilateral breast prostheses completed Not Available [facility] 06/14/2022 08:05:46 Removal of ovarian cyst(s) completed Not Available [facility] 06/14/2022 08:05:46 Imaging Results Imaging Date Name Status LastModified by Organization Details LastModified Time 12/25/2022 XR, chest, 2 view completed [email or web address] [place] [address] (Imaging) [address] [place], [address], 01/09/2023 10:03:27 01/14/2023 XR, chest, 2 view [email or web address] [place] [address], [address], 01/17/2023 07:36:56 02/05/2023 CT, chest, w/o contrast completed [address] [place], [address], 02/23/2023 14:01:34 02/05/2023 CT, angiogram, chest, w/o contrast completed [address] [place], [address], 02/06/2023 07:58:44 02/06/2023 complete PFT w/ post bronchodilator spirometry* completed [facility] (One Call Scheduling) [address] [place], [address], 02/25/2023 14:11:50 Procedure Notes None recorded. Medical Equipment None Reported. Allergies No known drug allergies Medications Name Sig Start Date Stop Date Status Note LastModified by Organization Details LastModified Time carisoprodo l 350 mg tablet TAKE 1 TABLET BY MOUTH EVERY 8 HOURS NEEDED FOR PAIN OR MUSCLE SPASM 12/21 completed Not Available Not Available Not Available amoxicillin 500 mg capsule 09/06 completed Not Available Not Available Not Available prednisone 10 mg tablet Take 1 tablet every day by oral route as directed for 10 days. 01/15 completed Not Available Not Available Not Available doxycycline hyclate 100 mg capsule TAKE 1 CAPSULE BY MOUTH TWICE DAILY FOR 10 DAYS 01/09 completed Not Available Not Available Not Available Ceftin 500 mg tablet Take 1 tablet every 12 hours by oral route for 10 days. 03/28 completed Not Available Not Available Not Available cetirizine 10 mg tablet TAKE 1 TABLET BY MOUTH EVERY DAY 06/28 completed Not Available Not Available Not Available azithromyci n 250 mg tablet TK 2 TS PO ON DAY 1, THEN TK 1 T PO D FOR 4 DAYS 12/21 completed Not Available Not Available Not Available ibuprofen 800 mg tablet Take 1 tablet 3 times a day by oral route. 01/15 completed Not Available Not Available Not Available Lidocaine Viscous 2 % mucosal solution Take 5 mL every 4 hours by oral route as directed for 15 days. 09/25 completed Not Available Not Available Not Available fluconazole 150 mg tablet TAKE 1 TABLET BY MOUTH NEEDED ONE DOSE 06/17 completed Not Available Not Available Not Available benzonatate 200 mg capsule TAKE 1 CAPSULE BY MOUTH THREE TIMES DAILY NEEDED 01/15 completed Not Available Not Available Not Available valacyclovi r 1 gram tablet TAKE 1 TABLET BY MOUTH THREE TIMES DAILY FOR 10 DAYS 08/29 completed Not Available Not Available Not Available hydrocodone 5 mg-acetamin ophen 325 mg tablet 09/06 completed Not Available Not Available Not Available ondansetron HCl 8 mg tablet Take 1 tablet every 8 hours by oral route as needed. active Not Available Not Available No t Available phenazopyri dine 200 mg tablet TAKE 1 TABLET BY MOUTH EVERY 8 HOURS FOR 7 DAYS NEEDED 08/29 completed Not Available Not Available Not Available ondansetron HCl 4 mg tablet TAKE 1 TABLET BY MOUTH EVERY 6 HOURS NEEDED FOR NAUSEA 12/21 completed Not Available Not Available Not Available prednisone 20 mg tablet 06/29 completed Not Available Not Available Not Available penicillin V potassium 500 mg tablet active Not Available Not Available Not Available ciprofloxac in 500 mg tablet TAKE 1 TABLET BY MOUTH EVERY 12 HOURS FOR 5 DAYS DIRECTED 05/23 completed Not Available Not Available Not Available sulfamethox azole 800 mg-trimetho prim 160 mg tablet Take 1 tablet every 12 hours by oral route. 03/24 completed Not Available Not Available Not Available levothyroxi ne 25 mcg tablet TAKE 1/2 TABLET BY MOUTH DAILY 12/21 completed Not Available Not Available Not Available nystatin-tr iamcinolone 100,000 unit/gram-0 .1 % topical ointment 02/24 completed Not Available Not Available Not Available oxycodone-a cetaminophe n 5 mg-325 mg tablet TAKE 1 TABLET BY MOUTH EVERY 6 HOURS NEEDED FOR PAIN 12/21 completed Not Available Not Available Not Available amoxicillin 875 mg tablet Take 1 tablet every 12 hours by oral route with meals for 10 days. active Not Available Not Available No t Available benzonatate 100 mg capsule Take 1 capsule 3 times a day by oral route as needed for 10 days. 06/29 completed Not Available Not Available Not Available cephalexin 500 mg capsule TAKE 1 CAPSULE BY MOUTH THREE TIMES DAILY FOR 7 DAYS DIRECTED 06/17 completed Not Available Not Available Not Available nitrofurant oin macrocrysta l 100 mg capsule Take 1 capsule every 6 hours by oral route with meals for 7 days. active Not Available Not Available No t Available docusate sodium 100 mg capsule TAKE ONE CAPSULE BY MOUTH TWICE DAILY 12/21 completed Not Available Not Available Not Available montelukast 10 mg tablet Take 1 tablet every day by oral route in the evening for 30 days. 02/24 completed Not Available Not Available Not Available codeine 10 mg-guaifene sin 100 mg/5 mL oral liquid TAKE 10 ML BY MOUTH EVERY 8 HOURS FOR 5 DAYS NEEDED 03/29 completed Not Available Not Available Not Available ceftriaxone 500 mg solution for injection active Not Available Not Available No t Available ibuprofen 600 mg tablet TAKE 1 TABLET BY MOUTH EVERY 6 HOURS FOR 15 DAYS NEEDED active Not Available Not Available No t Available levofloxaci n 500 mg tablet Take 1 tablet every 24 hours by oral route as directed for 10 days. active Not Available Not Available No t Available methylpredn isolone 4 mg tablets in a dose pack FOLLOW PACKAGE DIRECTION S 01/09 completed Not Available Not Available Not Available albuterol sulfate HFA 90 mcg/actuati on aerosol inhaler INHALE 2 PUFFS BY MOUTH EVERY 6 HOURS FOR 10 DAYS NEEDED 08/29 completed Not Available Not Available Not Available ipratropium bromide 42 mcg (0.06 %) nasal spray USE 1 SPRAY IN EACH NOSTRIL FOUR TIMES DAILY NEEDED 08/29 completed Not Available Not Available Not Available norethindro ne (contracept sebastian) 0.35 mg tablet TAKE 1 TABLET BY MOUTH DAILY active Not Available Not Available No t Available fluticasone propionate 50 mcg/actuati on nasal spray,suspe nsion SHAKE LQ AND U 2 SPRAYS IEN QD 06/22 completed Not Available Not Available Not Available spironolact one 50 mg tablet TAKE 1 TABLET BY MOUTH EVERY MORNING 05/23 completed Not Available Not Available Not Available amoxicillin 875 mg-potassiu m clavulanate 125 mg tablet TAKE 1 TABLET BY MOUTH EVERY 12 HOURS FOR 10 DAYS DIRECTED 01/15 completed Not Available Not Available Not Available Zovirax 5 % topical cream APPLY AA FID active Not Available Not Available No t Available Ciprodex 0.3 %-0.1 % ear drops,suspe nsion INSTILL 4 DROPS INTO AFFECTED EAR(S) BY OTIC ROUTE 2 TIMES PER DAY FOR 7 DAYS active Not Available Not Available No t Available nitrofurant oin monohydrate /macrocryst als 100 mg capsule TAKE 1 CAPSULE BY MOUTH TWICE DAILY FOR 7 DAYS 12/21 completed Not Available Not Available Not Available Mucinex DM 30 mg-600 mg tablet,exte nded release 12 hr Take 1 tablet every 12 hours by oral route as directed for 15 days. active Not Available Not Available No t Available Nexium 06/17 completed Not Available Not Available Not Available Solu-Medrol (PF) 125 mg/2 mL solution for injection Take 125 mg by injection route for 1 day. 01/15 completed Not Available Not Available Not Available SwypeShield 1.5 billion cell capsule Take 1 capsule every day by oral route in the morning for 30 days. 10/10 completed Not Available Not Available Not Available Estarylla 0.25 mg-0.035 mg tablet TAKE 1 TABLET BY MOUTH DAILY 06/17 completed Not Available Not Available Not Available Vitals Date Recorded Body height Body mass index (BMI) Body weight Body temperature Heart rate Oxygen saturation Oxygen saturation in Arterial blood by Pulse oximetry Systolic blood pressure Diastolic blood pressure Provider Name and Address Organization Details Last Updated DateTime 3 175.26 cm 23.9 kg/m2 86691.9 6 g 98.2 [degF] 63 /min 99 % 99 % 124 mm[Hg] 84 mm[Hg] Shalonda Clement MA [facility] 3 12:21:33 Date Recorded Heart rate Respiratory rate Provider N tran and Address Organization Details Last Updated DateTime 01/16/2023 63 /min 19 /min Zen Earl MD [address], [place], [address] [facility] 01/16/2023 12:54:57 Date Recorded Body height Body mass index (BMI) Body weight Body temperature Heart rate Oxygen saturation Oxygen saturation in Arterial blood by Pulse oximetry Systolic blood pressure Diastolic blood pressure Provider Name and Address Organization Details Last Updated DateTime 3 175.26 cm 25.3 kg/m2 13413.3 g 97.9 [degF] 72 /min 97 % 97 % 112 mm[Hg] 70 mm[Hg] Shalonda Clement MA [facility] [employer] [facility] 3 15:40:14 Date Recorded Heart rate Respiratory rate Provider N tran and Address Organization Details Last Updated DateTime 03/29/2023 72 /min 15 /min Zen Earl MD [address], [place], [address] 03/29/2023 16:05:37 Date Recorded Body height Body mass index (BMI) Body weight Body temperature Heart rate Respiratory rate Oxygen saturation Oxygen saturation in Arterial blood by Pulse oximetry Systolic blood pressure Diastolic blood pressure Provider Name and Address Organization Details Last Updated DateTime 4 175.26 cm 25.6 kg/m2 59287.8 3 g 98.1 [degF] 70 /min 16 /min 99 % 99 % 108 mm[Hg] 66 mm[Hg] Salvatore Cabello [facility] 4 15:53:05 Date Recorded Body height Body mass index (BMI) Body weight Body temperature Heart rate Respiratory rate Oxygen saturation Oxygen saturation in Arterial blood by Pulse oximetry Systolic blood pressure Diastolic blood pressure Provider Name and Address Organization Details Last Updated DateTime 4 175.26 cm 24.7 kg/m2 06968.9 8 g 98.1 [degF] 70 /min 16 /min 98 % 98 % 110 mm[Hg] 68 mm[Hg] Salvatore Cabello [facility] [employer] [facility] 4 10:31:05 Date Recorded Body height Body mass index (BMI) Body weight Body temperature Heart rate Oxygen saturation Oxygen saturation in Arterial blood by Pulse oximetry Pain severity - 0-10 verbal numeric rating [Score] - Reported Respiratory rate Systolic blood pressure Diastolic blood pressure Provider Name and Address Organization Details Last Updated DateTime 4 175.26 cm 25.1 kg/m2 72518.4 g 97.1 [degF] 68 /min 98 % 98 % 2 20 /min 124 mm[Hg] 80 mm[Hg] Reina Shaikh RN [facility] [employer] [facility] 4 14:07:51 Social History Question Answer Notes LastModified by Organization Details LastModified Time Tobacco Smoking Status Never Smoker Not Available [facility] 06/14/2022 08:05:09 Do You Have An Advance Directive? No [id number] Information not available 06/14/2022 What Is Your Level Of Alcohol Consumption? None [id number] Information not available 06/14/2022 Is Blood Transfusion Acceptable In An Emergency? Yes Information not available 08/30/2023 What Is Your Level Of Caffeine Consumption? Occasional [id number] Information not available 06/14/2022 What Is Your Code Status? Full Code Information not available 08/30/2023 In The 14 Days Before Symptom Onset, Have You Had Close Contact With A Laboratory-confi rmed COVID-19 While That Case Was Ill? No MIGRATION.030 [id number] Information not available 06/14/2022 In The 14 Days Before Symptom Onset, Have You Had Close Contact With A Person Who Is Under Investigation For COVID-19 While That Person Was Ill? No MIGRATION.030 [id number] Information not available 06/14/2022 What Type Of Diet Are You Following? REGULAR [id number].0301 [id number] Information not available 06/14/2022 What Is The Highest Grade Or Level Of School You Have Completed Or The Highest Degree You Have Received? [id number] MIGRATION.030 [id number] Information not available 06/14/2022 Do You Have An Electrostatic Air Filter? 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 No MIGRATION.030 [id number] Information not available 06/14/2022 What Is The Fluoride Status Of Your Home? Unknown [email or web address].030 [id number] Information not available 06/14/2022 Are There Any Guns Present In Your Home? Yes [email or web address].030 [id number] Information not available 06/14/2022 Do You Have A Humidifier? Yes Information not available 01/16/2023 Do You Use Insect Repellent Routinely? Yes MIGRATION.030 [id number] Information not available 06/14/2022 Where Do You Live? [facility] MIGRATION.030 [id number] Information not available 06/14/2022 Do You Have A Medical Power Of Archival Records Clerk? No MIGRATION.030 [id number] Information not available 06/14/2022 Do You Have Moisture Problems In Your Home? Yes Taken Care Of - Happened After Sickness Started Information not available 01/16/2023 What Was The Date Of Your Most Recent Tobacco Screening? 03/29/2023 Information not available 03/29/2023 How Many Children Do You Have? 3 Information not available 08/30/2023 Do You Have Any Pets? No MIGRATION.[id number] [id number] Information not available 06/14/2022 What Is Your Relationship Status? MIGRATION.030 [id number] Information not available 06/14/2022 Do You Use Your Seat Belt Or Car Seat Routinely? Yes MIGRATION.030 [id number] Information not available 06/14/2022 Do You Have Smoke And Carbon Monoxide Detectors In Your Home? Yes MIGRATION.0301 [id number] Information not available 06/14/2022 Are You Passively Exposed To Smoke? No MIGRATION.030 [id number] Information not available 06/14/2022 Are There Any Smokers In Your House? No MIGRATION.0301 [id number] Information not available 06/14/2022 Do You Participate In Social Media? Yes MIGRATION.030 [id number] Information not available 06/14/2022 Do You Feel Stressed (tense, Restless, Nervous, Or Anxious, Or Unable To Sleep At Night)? [id number] MIGRATION.030 [id number] Information not available 06/14/2022 Do You Use Any Illicit Or Recreational Drugs? No MIGRATION.030 [id number] Information not available 06/14/2022 Do You Use Sunscreen Routinely? Yes MIGRATION.030 [id number] Information not available 06/14/2022 Have You Recently Traveled Abroad? No MIGRATION.030 [id number] Information not available 06/14/2022 Are You Currently In School? No MIGRATION.030 [id number] Information not available 06/14/2022 Do You Have Any Dietary Restrictions? Yes Watch Sugar Satured Fats MIGRATION.030 [id number] Information not available 06/14/2022 Sex: Female Functional Status Question Answer Note LastModified by Organizat ion Details LastModified Time What is your exercise level? Heavy [id number] Information not available 06/14/2022 Mental Status None recorded. Family History Relationship Description Onset Age of this Age Resolved Age Notes LastModified by Organization Details LastModified Time Father Heart disease [email or web address] Not available 2022 12:42:21 Mother Heart disease [email or web address] Not available 2022 12:42:27 Paternal Uncle Heart disease [email or web address] Not available 2022 12:42:31 Medical History Condition Response BLINDNESS N RHEUMATIC FEVER N KIDNEY STONES N BLADDER PROBLEMS N MRSA N OTHER # 1 N POLIO N LUNG DISEASE/DISORDER N HISTORY OF DRUG ABUSE N COPD N RADIATION / CHEMOTHERAPY N Other # 2 N BLOOD DISEASES N SURGERY N EAR OR HEARING PROBLEMS N MUMPS N SHINGLES Y FEMALE PROBLEMS / INFECTIONS N DEPRESSION (INCLUDING POST ) N BOWEL PROBLEMS N STROKE/TIA N THYROID DISEASE N ULCERS N BENIGN PROSTATIC HYPERPLASIA N MEASLES N CERVICALGIA N HYPOTENSION N TB SKIN TEST N MYOCARDIAL INFARCTION N OBESITY N PARAPELGIA N GERD/NAUSEA N ANEURYSM N URINARY/BLADDER/KIDNEY PROBLEMS N CORONARY ARTERY DISEASE (CAD) N MENIERE'S DISEASE N ADDICTION CONCERNS N ENDOMETRIOSIS N USE OF BLOOD THINNERS N SKIN PROBLEMS N EMPHYSEMA N GASTROINTESTINAL DISORDER N MUSCLE,JOINT OR BONE PROBLEMS N GASTROINTESTINAL BLEEDING N BLOOD CLOTS N ASTHMA N CATARACTS N ERECTILE DYSFUNCTION N GI PROBLEMS N CHF N Low Testosterone N NEUROPATHY N INFERTILITY N AIDS/HIV N FRACTURES N CHEMOTHERAPY / RADIATION N VISION/EYE PROBLEMS N LIVER DISEASE N MALE HYPOGONADISM N HYPERTENSION N TOURETTE'S N ANXIETY DISORDER N BLOOD TRANSFUSION N ANEMIA/BLOOD DISORDER N CHRONIC EAR INFECTIONS N BRONCHITIS N TUBERCULOSIS N GLAUCOMA N FOOT PROBLEM N DIVERTICULITIS N SLEEP APNEA N CHICKENPOX N ALLERGIES/HAYFEVER N INFECTIOUS DISEASE N PROSTATE N HEART ARRHYTHMIA N INSOMNIA N HIGH CHOLESTEROL / HYPERLIPIDEMIA N EYE PROBLEMS N HYPERTHYROIDISM N EATING DISORDER N EDEMA N CHRONIC PAIN SYNDROME N CAROTID BLOCKAGE N CONSTIPATION N BACK / NECK PROBLEMS N HAVE YOU BEEN HOSPITALIZED OR SEEN IN [facility] IN THE PAST YEAR ? N ATHEROSCLEROSIS N BREAST PROBLEMS N DIALYSIS N ECZEMA N FIBROMYALGIA N OSTEOPOROSIS N ARTHRITIS N NO SIGNIFICANT PAST MEDICAL HISTORY N APPENDICITIS N DIABETES, TYPE N BAD TEETH N HEARTBURN / REFLUX N ADD/ADHD N AUTISM SPECTRUM DISORDER (ASD) N HEPATITIS / LIVER DISEASE N PULMONARY DISEASE N GOUT N SLEEP DISORDER N ALZHEIMER'S DISEASE N PAIN N DEMENTIA N HERPES N SEIZURES/EPILEPSY N HEADACHES/MIGRAINES N VASCULAR DISEASE N PACEMAKER N DIZZINESS N HEART DISEASE/HEART PROBLEMS N KIDNEY DISEASE N SCARLET FEVER N MULTIPLE SCLEROSIS N DEVELOPMENTAL OR BEHAVIORAL DISORDERS N MENTAL DISORDER/ILLNESS N CANCER: SPECIFY N CARDIAC ARRHYTHMIA N PNEUMONIA N ATRIAL FIBRILLATION N Gall Stones N PULMONARY EMBOLISM N AUTOIMMUNE DISEASE N Gynecological History Statement/Question Response Date of Last Mammogram 12/23/2021 Date of Last Colonoscopy Flow Moderate Most Recent Bone Density Date of LMP 08/25/2023 Frequency of Cycle (Q days) 28 Duration of Flow (days) 6 Current Control Method BCPs Most Recent Mammogram Obstetrics History GPAL:G 0 P 0 0 0 0 Immunizations Vaccine Type Date Status Note Provider Nam e and Address Organization Details Recorded Time Influenza, split virus, trivalent, preservative 5 completed Not Available [facility] 06/14/2022 08:14:29 Influenza, split virus, trivalent, preservative 4 completed Not Available [facility] 06/14/2022 08:14:29 Past Encounters Encounter ID Performer Location Encounter Start Date Encounter Closed Date Diagnosis/Indication Diagnosis SNOMED-CT Code Diagnosis ICD10 Code Diagnosis Note [id number] Ethan Stephen MD [facility] [address] 07/22/2021 00:00:00 07/22/2021 15:50:22 [id number] Ethan Stephen MD [address] [address] 09/06/2021 00:00:00 09/06/2021 14:32:08 [id number] Reina Reyna NP [address] [address] 11/24/2021 00:00:00 11/24/2021 14:58:13 [id number] Ethan Stephen MD [address] [address] 02/20/2022 00:00:00 02/20/2022 15:54:13 [id number] Reina Reyna NP [address] [address] 06/14/2022 15:11:31 06/14/2022 15:51:11 Vaginal irritation 633779312 N89.8 Mixed genital ayad per Well now culture.Ur ine dip today with small leuko.Give n symptoms, will treat for Yeast. Less likely BV due to symptoms. No odor, thicker discharge and itch. [id number] Reina Reyna NP [address] [address] 07/11/2022 16:02:27 07/11/2022 16:41:14 Upper respiratory infection 25133689 J06.9 Medrol dose colby as directed on label Cough 58858967 R05.9 cough tablet prn. [id number] Reina Reyna NP [address] [address] 09/05/2022 16:21:20 09/05/2022 17:27:02 Vaginal irritation 578946904 N89.8 Mixed genital ayad per Well now culture.Ur ine dip today with small leuko.Give n symptoms, will treat for Yeast. Less likely BV due to symptoms. No odor, thicker discharge and itch. 09/05/22 returned for vaginal irritation . Started cycle. Vaginitis swab sent. Fluconazol e sent. [id number] Reina Reyna NP [address] [address] 12/21/2022 15:49:22 12/21/2022 16:25:56 Cough 33597260 R05.9 cough tablet prn. Upper resp iratory infection 34656353 J06.9 Medrol dose colby as directed on label Pharyngitis 565452055 J0 2.9 [id number] Ethan Stephen MD [address] [address] 12/25/2022 11:40:58 12/25/2022 12:39:12 Bronchitis 87236051 J40 Cough 77104762 R05.9 Fatigue 67883490 R53.83 Nasal congestion 3022867 0 R09.81 Muscle pain 46436861 M79 .10 [id number] Ethan Stephne MD [address] [address] 01/09/2023 09:54:14 01/09/2023 11:09:34 Bronchitis 26493691 J40 Cough 90056750 R05.9 Fatigue 75855089 R53.83 Nasal congestion 7329922 0 R09.81 Candidal vulvovaginitis 23645671 B37.31 [id number] Zen Earl MD [address] [address] 01/16/2023 11:58:12 01/16/2023 12:59:59 Chronic cough 20595464 R05.3 R06.00 T78.40XA D89.9 I27.20 Posterior rhinorrhea 758 98462 R09.82 [id number] Zen Earl MD [address] [address] 03/29/2023 15:12:37 04/02/2023 09:02:17 Posterior rhinorrhea 34770923 R09.82 [id number] Ethan Stephen MD [place] [address] 05/23/2023 15:44:28 05/23/2023 16:12:57 Dysuria 80156239 R30.0 Candidal vulvovaginitis 35388228 B37.31 Urinary symptoms 8939054 08 R39.9 [id number] Ethan Stephen MD [place] [address] 06/18/2023 10:21:50 06/18/2023 10:52:14 Adult health examination 901058698 Z00.00 Diabetes m ellitus screening 284122567 Z13.1 Screening for disorder 400374948 Z13.9 Screening mammography 24 173049 Z12.31 Screening for malignant neoplasm of colon 985347389 Z12.11 [id number] Ethan Stephen MD [place] [id number] 08/30/2023 13:55:39 08/30/2023 14:32:28 Headache 75290834 R51.9 Continue with ibuprofen and tylenol for painIncrea se water intake, add sea salt to replenish minerals.L et us know if not resolved as you recover from shingles. Sore throat 069244735 J0 2.9 Health Concerns Section Related Observation LastModified by Organization Detai ls LastModified Time None Recorded Concern Status LastModified by Organization Details LastModified Time None Recorded Advance Directives Directive N: Payers Encounter Date Sequence Insurance Name Policy Number Policy Angel Covered Member ID Angel Member ID Guarantor Name 01/16/2023 1 [employer] CHO[employer]US [id number] Tommy A Besse [id number] [facility] 03/29/2023 1 [employer]US [id number] Tommy A Besse [id number] [facility] 05/23/2023 1 [employer]US [id number] Tommy A Besse [id number] [facility] 06/18/2023 1 [employer]US [id number] Tommy A Besse [id number] [facility] 08/30/2023 1 [facility] [id number] Tommy Hamm [facility] [id number] [facility] Notes Date Note Type Note Provider Name and Address Organization Details Recorded Time 01/16/2023 text/html Primary care/Ref erring provider: Reina Reyna NP Patient is here to go over cough evaluation and management. Initial development of cough: 12/2022 Duration of cough: 1 month Nature of cough: productive Condition of cough: worsening Timing of cough: afternoon or night time Frequency: every 3 hours Limits activities: yes Aggravating factors: walking briskly, Lysol Alleviating factors: resting Treatment history: Solu-medrol 125 mg injection 01/09/23Codeine-Guaife nesin 01/09/23 - 01/13/23Augmentin 01/09/23 - 01/18/23Prednisone 10 mg daily 01/09/23 - 01/18/23 Other symptoms: Drooling: no Dysarthria: no Neck pain: no Odynophagia: no Dysphagia: no Weak mastication: no Facial weakness: no Nasal speech: no Protruding tongue: no Wheezing: no Chest tightness: yes Orthopnea: no Frequent throat clearing or swallowing: yes Palpitations: no Heartburn: no Edema: no Modified [employer] [place] (mMRC) Dyspnea Scale - Grade 1 Grade 0 I only get breathless with strenuous exercise . Grade 1 I get short of breath when hurrying on the level or walking up a slight hill . Grade 2 I walk slower than people of the same age on the level because of breathlessness or have to stop for breath when walking at my own pace on the level . Grade 3 I stop for breath after walking about 100 yards or after a few minutes on the level . Grade 4 I am too breathless to leave the house or I am breathless when dressing . Environmental exposures: Nicotine smoke: no Colt: no Dye: no Dust mites: yes Mold: no Damp basement: no Wood burning stove: no Animal dander: no Cockroaches: no Pollen: yes Arsenic: no Asbestos: no Beryllium: no Cadmium: no Chromium: no [place] smoke: no Diesel fumes: no Nickel: no Silica: no Soot: no EPWORTH SLEEPINESS SCALE (ESS) CHANCE OF DOZING SCORE 0 = would never doze 1 = slight chance of dozing 2 = moderate chance of dozing 3 = high chance of dozing SITUATION AND CHANCE OF DOZING Sitting and reading - 0 Watching television - 0 Sitting inactive in a public place (e.g. a theater or meeting) - 0 As a passenger in a car for an hour without a break - 0 Lying down to rest in the afternoon when circumstances permit - 1 Sitting and talking to someone - 0 Sitting quietly after lunch without alcohol - 0 In a car, while stopped for a few minutes in the traffic - 0 TOTAL SCORE 1 Subjectively, patient has a slight chance of dozing. Zen Earl MD [address] [facility], [facility] [address], [place], [address], [place] [facility] 01/16/2023 12:55:24 03/29/2023 text/html Primary care/Ref erring provider: Reina Reyna NP Patient is here to go over cough evaluation and management. Initial development of cough: uration of cough: 3 monthsNature of cough: non-productiveConditio n of cough: improvedTiming of cough: afternoon or night timeFrequency: once a weekLimits activities: yesAggravating factors: walking briskly, LysolAlleviating factors: resting Treatment history: Solu-medrol 125 mg injection 01/09/23Codeine-Guaife nesin 01/09/23 - 01/13/23Augmentin 01/09/23 - 01/18/23Prednisone 10 mg daily 01/09/23 - 01/18/23Atrovent nasal spray 0.06% 1 spray to each nostril up to 4 times a day 01/2023 - effective Other symptoms:Drooling: noDysarthria: noNeck pain: noOdynophagia: noDysphagia: noWeak mastication: noFacial weakness: noNasal speech: noProtruding tongue: noWheezing: noChest tightness: yes, seen unrecalled outcomes analyst at [facility] for 2-D echocardiogram in rthopnea: noFrequent throat clearing or swallowing: yesPalpitations: noHeartburn: noEdema: no Modified [employer] [place] (mMRC) Dyspnea Scale - Grade 1Grade 0 I only get breathless with strenuous exercise .Grade 1 I get short of breath when hurrying on the level or walking up a slight hill .Grade 2 I walk slower than people of the same age on the level because of breathlessness or have to stop for breath when walking at my own pace on the level .Grade 3 I stop for breath after walking about 100 yards or after a few minutes on the level .Grade 4 I am too breathless to leave the house or I am breathless when dressing . Environmental exposures:Nicotine smoke: noPaint: noDye: noDust mites: yesMold: noDamp basement: noWood burning stove: noAnimal dander: noCockroaches: noPollen: yesArsenic: noAsbestos: noBeryllium: noCadmium: noChromium: noCoal smoke: noDiesel fumes: noNickel: noSilica: noSoot: no EPWORTH SLEEPINESS SCALE (ESS) CHANCE OF DOZING SCORE0 = would never doze1 = slight chance of dozing2 = moderate chance of dozing3 = high chance of dozing SITUATION AND CHANCE OF DOZINGSitting and reading - 0Watching television - 0Sitting inactive in a public place (e.g. a theater or meeting) - 0As a passenger in a car for an hour without a break - 0Lying down to rest in the afternoon when circumstances permit - 0Sitting and talking to someone - 0Sitting quietly after lunch without alcohol - 0In a car, while stopped for a few minutes in the traffic - 0TOTAL SCORE 0Subjectively, patient has no chance of dozing. Zen Earl MD [address], [place] [address], [place], [address], [employer] [facility] 03/29/2023 16:07:22 05/23/2023 text/html ACV: C/o urinary urgency and frequency for last couple weeks. Pt was given Cipro last week and she has finished and it she got better, but not back to her normal. Denies any other symptoms. Ethan Stephen MD [address], [address], [place], [address], [employer] 05/23/2023 16:09:30 06/18/2023 text/html Pt is here for h er annual exam. Doing overall well. Denies any new concern. Pt still has urinary urgency and will be seeing Uro in future for it. Ethan Stephen MD [address], [facility] [address], [place], [address], [facility] [employer] 06/18/2023 10:51:51 08/30/2023 text/html Bren Mercado is a 48 year old female patient here to on a shingles rash. She was seen by on 08/16/23. for shingles on the outer Pinna of her right ear. She was given Valtrex. She finished this on 08/28/22. She went to due to pain, she went 12 hours after the onset of pain. She has concerns today with a headache across her forehead. This has been constant since the start of the singles outbreak. She is having a sore throat and difficulty swallowing today, this started last night. JEREMIAH Sotomayor [address], [facility] [address], [place], [id number], [facility] [employer] [facility] [employer] [address] 08/30/2023 14:31:46 OBGyn Episode No OBEpisode recorded.
--- OUTSIDE RECORDS SUMMARY | 2024-08-24 03:19 | XMS_ITS | Clinical Summary ---
Author Organization [facility] Address [address] [place] [address] Care Team Providers Care Quill Buncher And Sorter Name Role Phone Unavailable Primary Care Provider Unavailabl e Allergies No known active allergies Medications nystatin-triamc inolone (MYCOLOG) 100,000-0.1 unit/gram-% Ointment Apply to affected area 2 times daily. 30 Gram 0 08/12/2013 Active Social History Tobacco Use Types Packs/Day Years Used Date Smoking Tobacco: Never Assessed Comments Unknown Sex and Gender Information Value Date Recorded Sex Assigned at Not on file Legal Sex Female 11:03 AM CDT Gender Identity Not on file Sexual Orientation Not on file Plan of Treatment Health Maintenance Due Date Last Done Comments DTAP/TDAP/TD VACCINES (1 - Tdap) 1993 HEPATITIS B VACCINES (1 of 3 - 19+ 3-dose series) 02/15 HPV/Cotest (21-29) 1995 CERVICAL CANCER SCREENING 2004 HPV/Cotest (30-65) 2004 PAP SMEAR 2004 BREAST CANCER SCREENING 2014 COLORECTAL SCREENING 2019 Colorectal Cancer Screening 2019 FIT-DNA Q 3 years 2019 FIT/FOBT Q 1 year 2019 Flex Sig/CT Colonography Q 5 years 2019 INFLUENZA VACCINE (#1) 2023 ZOSTER VACCINE (1 of 2) 2024
--- NOTE | 2024-08-24 03:26 | ECG_ITS ---
Test Date: 2024-08-24 03:31:51 Measurements Intervals [place] Rate: 63 P: 56 PA: 129 QRS: 39 QRSD: 85 T: 39 QT: 387 QTc: 398 Interpretive Statements SINUS RHYTHM POSSIBLE RIGHT VENTRICULAR CONDUCTION DELAY [RSR (QR) IN V1/V2] No previous ECG available for comparison Electronically Signed On 08-25-2024 16:13:38 CDT by Jero Thompson M.D.
[2024-08-24 03:38] LABS: Basophils Percent Auto 0.4 % (0.2-1.2); Eosinophils Absolute Auto 0.1 K/mm3 (0-0.3); Eosinophils Percent Auto 1.3 % (0-4.4); Hematocrit 38.8 % (37.0-47.0); Hemoglobin 12.6 g/dL (12.0-15.0); Immature Granulocyte Absolute 0.02 K/mm3 (0.00-0.031); Immature Granulocyte Percent A 0.2 % (0-0.5); Lymphocytes Absolute Auto 3.29 K/mm3 (0.9-3.2); Lymphocytes Percent Auto 39.8 % (18.3-44.2); Mean Corpuscular HGB Conc 32.5 g/dl (32-36); Mean Corpuscular Hemoglobin 28.5 pg (26-34); Mean Corpuscular Volume 87.8 fl (80-100); Mean Platelet Volume 9.6 fl (7.4-10.4); Monocytes Absolute Auto 0.6 K/mm3 (0.1-0.6); Neutrophils Absolute Auto 4.2 K/mm3 (1.3-6.7); Neutrophils Percent Auto 51.3 % (45.5-73.1); Platelet Count Result 388 k/mm3 (150-375); Red Blood Count 4.42 M/mm3 (4.2-5.4); Red Cell Distribution Width 13.7 % (11.5-14.5); White Blood Count 8.3 K/mm3 (4.5-10.0)
[2024-08-24 03:49] LABS: Alanine Aminotransferase 18 U/L (6-35); Albumin Level 4.2 g/dL (3.5-5.1); Alkaline Phosphatase 54 U/L (38-126); Anion Gap 8 mmol/L (4-12); Aspartate Amino Transferase 24 U/L (14-36); Bilirubin,Total 0.2 mg/dL (0.2-1.3); Blood Urea Nitrogen 27 mg/dL (7-17); Calcium 9.3 mg/dL (8.4-10.2); Carbon Dioxide 27 mmol/L (22-30); Chloride 107 mmol/L (98-107); Estimated CRCL calculation 65 ml/min; Estimated Glomerular Filt Rate > 60; Glucose 91 mg/dL (65-110); Lipase 198 U/L (23-300); Potassium 3.7 mmol/L (3.4-5.0); Sodium 142 mmol/L (137-145)
[2024-08-24 03:59] LABS: Prothrombin Time 13.8 Seconds (11.1-14.7)
[2024-08-24 04:00] LABS: Partial Thromboplastin Time 28.1 Seconds (22.3-36.8)
[2024-08-24 04:01] LABS: Troponin I < 0.012 ng/mL (0.000-0.034)
[2024-08-24] MEDS: diazePAM INJ (*CRX) 10 MG/2 ML SYRINGE 5 MG IV PUSH (04:40)
--- OUTSIDE RECORDS SUMMARY | 2024-08-24 04:51 | XMS_ITS | Clinical Summary ---
Author Organization [facility] Address [address] [place] [address] Care Team Providers Care Registered Massage Therapist Name Role Phone Maribell Reina Gerson DESAI-DIANETICIST Primary Care Provider Source Comments [facility],non-owned Affiliates and Associated Physician Practices is amultiple site organization consisting of ambulatory clinics and hospital sitesin [place], [place], [place] and [place]. This disclosure is being madepursuant to the Care Everywhere program and may not contain all information available regarding this patient. 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
--- OUTSIDE RECORDS SUMMARY | 2024-08-24 04:51 | XMS_ITS | Clinical Summary ---
Author Organization [facility] Address [address] [place] [address] Care Team Providers Care Fugitive Investigator Name Role Phone Unavailable Primary Care Provider [...]
--- NOTE | 2024-08-24 05:39 | PC.NURSE ---
Patient ambulated to the bathroom and back to her room. Patient c/o nausea and states my hands are still tingling. ERP notified of patients symptoms and complaints.
--- NOTE | 2024-08-24 05:59 | ECG_ITS ---
Test Date: 2024-08-24 06:28:33 Measurements Intervals [place] Rate: 56 P: 67 CO: 133 QRS: 44 QRSD: 85 T: 38 QT: 407 QTc: 396 Interpretive Statements SINUS BRADYCARDIA POSSIBLE LEFT ATRIAL ENLARGEMENT [-0.1mV P WAVE IN V1/V2] INCOMPLETE RIGHT BUNDLE BRANCH BLOCK Compared to ECG 08/24/2024 03:31:51 NO SIGNIFICANT CHANGES Electronically Signed On 08-26-2024 14:02:18 CDT by Katie Stephen M.D.
--- NOTE | 2024-08-24 06:40 | PC.NURSE ---
This RN completed patients 3hr troponin and EKG and patient states can you tell him I still have a headache? This RN relayed patients request to ERP.
[2024-08-24] MEDS: ACETAMINOPHEN 500 MG TABLET 1000 MG PO (06:43)
[2024-08-24] MEDS: KETOROLAC 15 MG/ML VIAL (*BKC) IV PUSH (06:44)
[2024-08-24 07:05] LABS: Troponin I < 0.012 ng/mL (0.000-0.034)
--- NOTE | 2024-08-24 07:31 | ED_ITS ---
HPI - General Adult General Chief complaint: Chest Pain Stated complaint: chest pain and numbness in hands Time Seen by Provider: 08/24/24 04:12 History of Present Illness HPI narrative: This is a 49-year-old female presenting ED with chief complaint of chest pain. Patient was driving car and she developed tightness across her chest. She then developed tingling/pins and needles in her hands. She had the feeling that something is wrong. She felt nauseous. She does not have any fevers chills shortness of breath cough abdominal pain vomiting or diarrhea. No history of DVT/PE or risk factors. Sick contacts at home. Patient is very concerned because her mother and father both of heart disease Related Data Allergies Allergy/AdvReac Type Severity Reaction Status Date / Time No Known Allergies Allergy Verified 08/24/24 03:26 [facility] Past Medical History Medical History Screening mammogram for breast cancer Ovarian cyst Overweight History of ovarian cyst No active medical problems Surgical History Surgical History H/O laparoscopy History of removal of ovarian cyst History of breast augmentation Family History Family History Other Heart disease Heart valve disorder Social History Social History Smoking status: Never smoker Second hand tobacco smoke exposure: Yes (FRIENDS) Alcohol intake: never Substance use: never Substance use type: does not use Lack of Transportation: No Lack of Food: Never True Current Housing: I Have Housing Concerned About Future Housing: No Difficulty Paying Gas/Electric Bills: No Difficulty Paying for Meds: No Currently Unemployed: No Education: Bachelor's Degree Difficulty w/ Childcare or Family Care: No Living arrangements: with family Occupation/Education: occupation Gender identity (if verbalized by the patient): Female Sexual Orientation (if Verbalized by the Patient): Straight or Heterosexual Spiritual care concerns: No Exam 2 Narrative: APPEARANCE: No apparent distress. Head: atraumatic. EYES: EOMI, NOSE: Atraumatic NECK: Trachea midline RESPIRATORY: No increased rate of breathing clear to auscultation CARDIOVASCULAR: RRR, no peripheral edema ABDOMINAL: Non-distended soft nontender MUSCULOSKELETAl: No obvious deformities NEURO: Alert. Moving 4/4 extremities SKIN:: Warm, dry. Normal color PSYCHIATRIC: Anxious appearing Course Vital Signs Vital signs: Vital Signs Temperature 97.6 F 08/24/24 03:21 Pulse Rate 75 08/24/24 03:21 Respiratory Rate 16 08/24/24 03:21 Blood Pressure 148/89 H 08/24/24 03:21 Pulse Oximetry 100 08/24/24 03:21 Oxygen Delivery Room Air 08/24/24 03:21 Temperature 97.6 F 08/24/24 03:21 Pulse Rate 71 08/24/24 06:45 Respiratory Rate 17 08/24/24 06:45 Blood Pressure 139/82 08/24/24 06:31 Pulse Oximetry 100 08/24/24 06:45 Oxygen Delivery Room Air 08/24/24 03:26 Medical Decision Making MDM Narrative Medical decision making narrative: -Course: 49-year-old female presenting with chest tightness and tingling in her hands. She is very anxious on exam. Patient was offered Valium which she accepted. This improved her condition immensely. Her chest pain workup including laboratory studies, BNP, D-dimer, troponin x2 EKG and chest x-ray were all within normal limits. On re-evaluation the patient is now resting comfortably in bed. She is well-appearing with stable vital signs. She is comfortable following up with her primary care physician for further management. Heart score is less than 4. Pain does not appear to be cardiac. Patient given return precautions. -DDX includes but is not limited to: ACS, pneumonia, pleurisy, pneumothorax, anxiety Independent EKG interpretation: Rhythm [sinus], Rate [63], [place] -[normal], PA -[normal], QRS [narrow], QTC [normal], T waves -[negative for concerning inversions], ST Segments - [Negative for concerning elevations] Final interpretations: [Normal Sinus Rhythm] Vital Signs Vital Signs: Vital Signs Temperature 97.6 F 08/24/24 03:21 Pulse Rate 75 08/24/24 03:21 Respiratory Rate 16 08/24/24 03:21 Blood Pressure 148/89 H 08/24/24 03:21 Pulse Oximetry 100 08/24/24 03:21 Oxygen Delivery Room Air 08/24/24 03:21 Temperature 97.6 F 08/24/24 03:21 Pulse Rate 71 08/24/24 06:45 Respiratory Rate 17 08/24/24 06:45 Blood Pressure 139/82 08/24/24 06:31 Pulse Oximetry 100 08/24/24 06:45 Oxygen Delivery Room Air 08/24/24 03:26 Lab Data 08/24/24 03:28 08/24/24 03:28 Labs: Lab Results 08/24/24 08/24/24 Range/Units 03:28 06:29 WBC 8.3 (4.5-10.0) K/mm3 RBC 4.42 (4.2-5.4) M/mm3 Hgb 12.6 D (12.0-15.0) g/dL Hct 38.8 (37.0-47.0) % MCV 87.8 (80-100) fl MCH 28.5 (26-34) pg MCHC 32.5 (32-36) g/dl RDW 13.7 (11.5-14.5) % Plt Count 388 H (150-375) k/mm3 MPV 9.6 (7.4-10.4) fl Immature Gran % (Auto) 0.2 (0-0.5) % Neut % (Auto) 51.3 (45.5-73.1) % Lymph % (Auto) 39.8 (18.3-44.2) % Kerr % (Auto) 7.0 (2.6-8.5) % Eos % (Auto) 1.3 (0-4.4) % Baso % (Auto) 0.4 (0.2-1.2) % Lymph # (Auto) 3.29 H (0.9-3.2) K/mm3 Kerr # (Auto) 0.6 (0.1-0.6) K/mm3 Eos # (Auto) 0.1 (0-0.3) K/mm3 Baso # (Auto) 0.0 (0.0-0.1) K/mm3 Abs Immat Gran (auto) 0.02 (0.00-0.031) K/mm3 Absolute Neuts (auto) 4.2 (1.3-6.7) K/mm3 Absolute Nucleated RBC 0.000 (0.0-0.012) K/mm3 Nucleated RBC % 0.0 (0.0-0.2) % PT 13.8 (11.1-14.7) Seconds INR 1.0 APTT 28.1 (22.3-36.8) Seconds D-Dimer 0.30 (<0.48) ug/mL Sodium 142 (137-145) mmol/L Potassium 3.7 (3.4-5.0) mmol/L Chloride 107 (98-107) mmol/L Carbon Dioxide 27 (22-30) mmol/L Anion Gap 8 (4-12) mmol/L BUN 27 H (7-17) mg/dL Creatinine 0.92 (0.7-1.0) mg/dL Estim Creat Clear Calc 65 ml/min Estimated GFR > 60 (59 - ) Glucose 91 (65-110) mg/dL Calcium 9.3 (8.4-10.2) mg/dL Total Bilirubin 0.2 (0.2-1.3) mg/dL AST 24 (14-36) U/L ALT 18 (6-35) U/L Alkaline Phosphatase 54 (38-126) U/L Troponin I < 0.012 < 0.012 (0.000-0.034) ng/mL Total Protein 7.0 (6.3-8.2) g/dL Albumin 4.2 (3.5-5.1) g/dL Lipase 198 (23-300) U/L Discharge Plan Discharge Clinical Impression: Chest tightness Patient Disposition: Home Condition: Stable Instructions: Antibiotic Form, Chest Pain (ED) Additional Instructions: You were seen in the emergency department for chest tightness. Your workup here was reassuring. Please follow-up closely with your primary care physician for further management. If you develop any new or worsening symptoms please return to the ED for evaluation. Patient Language: [place] Prescriptions: No Action norethindrone (contraceptive) [Christen] 0.35 mg tablet 0.35 mg PO DAILY Qty: 84 3RF Follow-up/Referrals: PHYSICIAN,TRAVELING FREIGHT AGENT [Primary Care Provider] -
== END 2024-08-24 07:47 | disposition home or self-care (01) ==
PROVIDERS: Emergency Provider Emergency Medicine
DX: R07.9 Chest pain, unspecified (principal)
CPT/HCPCS: 36415; 71046; 80053; 83690; 84484; 85025; 85380; 85610; 85730; 93005; 96374; 96375; 99284; A9270; J1885; J3360